=== PATIENT | male | born 1965 | race Caucasian/White ===

== ENCOUNTER 2017-10-06 07:55 | Emergency (ER) | payer MEDICARE, MEDICAID, SELFPAY ==
[2017-10-06 07:56] VITALS: BP 102/69; PULSE 75; RESP 18; TEMP 35.7; O2SAT 95; BMI 29.1
--- NOTE | 2017-10-06 08:12 | ED.DCSUM_ITS ---
- ER Visit Summary Date of Service: 10/06/17 Chief Complaint: Cough History of Present Illness: The patient is a 52 M brought in from residential with staff member. She states the patient has had a cough for the past 2 months and has been seeing primary care physician about recurrent bronchitis. This morning he seemed to have more labored breathing. Swelling was noted to all extremities over the past week or so. She does state that he tends to get more swollen in the summer, but has been admitted for pneumonia and was told that he had CHF as well. They have not noted a fever. Physical Examination: Patient is afebrile. Pulse ox is 95% on room air. Patient is lying in bed in no acute distress. He does have a moist sounding cough. Heart is regular rate and rhythm. Lung sounds are grossly clear but slightly diminished at the bases. No wheezes or rhonchi noted. Abdomen is soft and nontender. Lower external examination reveals 3+ edema symmetric. Test Results: Portable chest x-ray shows moderate cardiomegaly with prominence of the aortic knob. CT the chest is recommended. CBC was normal white count. Platelet count is 87,000 but this is consistent with his prior values. Chemistry studies reveal potassium of 5.7 with moderate hemolysis noted. BNP is normal at 42. Dilantin level is slightly low at 5.8. Depakote level is therapeutic at 65. EKG was obtained secondary to the elevated potassium rating. This is sinus rhythm at 70 bpm with no EKG evidence of hyperkalemia. He did have blood cultures drawn. He has been a difficult stick to get blood work on and with moderate hemolysis noted on the chemistry panel and no EKG changes I do not feel it is of great benefit to redraw his potassium level. Emergency Department Course and Treatment: Patient was observed here. Vital signs remained stable. He is resting comfortably. CT of the chest was obtained and reveals diffuse interstitial edema in both lung anaya with left lower lobe pneumonitis. There is no organized infiltrate. Test results were discussed with the patient's primary care physician, Dr. Zimmerman. Patient was placed on a Medrol Dosepak and will follow-up in the office. This is been discussed with his mother as well as residential staff members at bedside. Treatment Plan: [] Disposition: Discharge Impression: Pneumonitis This note was generated with [employer]ine[employer] software. It may contain incorrect words, spelling, and punctuation that were not noted in review of the chart prior to signing ED Disposition - Plan for ED Patient: Chief Complaint: Cough Referrals: Andrea Zimmerman Chi, MD [Primary Care Provider] -
[2017-10-06 08:39] VITALS: BP 111/67; PULSE 74; RESP 22; O2SAT 94
[2017-10-06 08:42] VITALS: O2SAT 95
[2017-10-06] MEDS: 0.9% Normal Saline 1,000 ML 15 ML IV (08:47)
[2017-10-06 08:52] LABS: Absolute Lymphocyte Count 1.37 X10^3/ul (0.83-4.51); Absolute Neutrophil Count 5.3 X10^3/uL (2.0-7.7); Eosinophil# 0.11 X10^3/uL; Eosinophils% 1.5 % (0-5); Hemoglobin 14.1 g/dl (13.0-16.5); Lymphocyte # 1.37 X10^3/ul (4.0); Lymphocyte % 19.1 % (19-41); Mean Corp Hgb Conc 34.4 g/gl (32-36); Mean Corpuscular Hgb 32.6 pg (27.0-32.0); Mean Corpuscular Volume 94.7 fL (80-94); Mean Platelet Vol. 11.2 fl (6.2-12.0); Monocyte# 0.43 X10^3/uL; Neutrophil # 5.25 X10^3/uL (2.7-7.7); Neutrophil % 73.3 % (47-70); Platelet Count 87 K/mm3 (150-450); RBC Distribution Width CV 16.3 % (11.6-14.6); RBC Distribution Width SD 54.5 fl (35.1-43.9); Red Blood Count 4.33 M/mm3 (4.6-6.2); White Blood Count 7.2 K/mm3 (4.4-11.0)
[2017-10-06 08:53] LABS: POSITIVE COUNT NO; POSITIVE DIFFERENTIAL NO; POSITIVE MORPHOLOGY NO
--- NOTE | 2017-10-06 08:55 | RAD_ITS ---
STUDY: X-RAY CHEST REASON FOR EXAM: Male, 52 years old. Cough and shortness of breath. TECHNIQUE: Single AP portable view of the chest. COMPARISON: Comparison is made with prior study dated April 15, 2017. FINDINGS: EKG liquids are seen. The lungs are clear and expanded. There is no demonstrated pleural abnormality. There is moderate cardiac enlargement. Normal mediastinum and zoila. Normal visualized pulmonary arteries. There is prominence of the aortic knob. This may represent either ectasia of the aortic knob versus superimposed infiltrate. Correlation with a CT scan is recommended. Normal visualized thoracic spine. Normal visualized ribs, clavicles, and shoulders. There is no demonstrated abnormality of the visualized soft tissue structures of the upper abdomen. RAD/Chest 1 View (Portable) IMPRESSION: Moderate cardiomegaly. Prominence of the aortic knob. Correlation with CT scan is recommended. Electronically Signed: Jesus Lobato MD at 9:19 EDT Tel [phone], Service support ,
[2017-10-06 09:21] LABS: BNP,B-Type NATRIURETIC PEPTIDE 42.7 pg/mL (0-100)
[2017-10-06 09:25] LABS: Anion Gap 8 (5-15); BUN 17 mg/dL (7-18); Calcium,Total 8.8 mg/dL (8.5-10.1); Chloride 107 mmol/L (98-107); Creatinine, Serum 0.77 mg/dL (0.70-1.30); EST Glomerular Filtration Rate 112 mL/min (>60); Est Glom Filt Rate - Afr Amer 136 mL/min (>60); Estimated Creatinine Clearance 104.92 ml/min; Glucose 75 mg/dL (74-106); Potassium 5.7 mmol/L (3.5-5.1); Sodium Level 141 mmol/L (136-145)
--- NOTE | 2017-10-06 09:26 | CT_ITS ---
STUDY: CT CHEST WITHOUT CONTRAST REASON FOR EXAM: Male, 52 years old. Chest pain and cough, shortness of breath history of melanoma and rectal cancer RADIATION DOSAGE (If Supplied By Facility): CTDIvol = ( 19.63 ) mGy, DLP = ( 627.79 ) mGycm TECHNIQUE: Transaxial imaging was performed without the administration of intravenous contrast material. Multiplanar coronal and sagittal images were reformatted. Individualized dose optimization techniques were used for this CT. COMPARISON: 03/18/2017 FINDINGS: Lung windows show the lungs to be normally expanded. Diffuse interstitial edema noted in both lung anaya with opacifications in the left lung base suggestive of pneumonitis. There is no organized infiltrate, or suspicious noncalcified mass or nodule. Soft tissue windows show a normal-appearing thyroid gland. There are scattered subcentimeter axillary and mediastinal lymph nodes. No pleural or pericardial effusions. Normal aorta arch and descending thoracic aorta. There are multi-level degenerative changes of the thoracic spine. Limited cuts through the upper abdomen show a small retrocardiac hiatal hernia and atrophic left kidney. CT/Chest without Contrast IMPRESSION: Diffuse interstitial edema in both lung anaya with left lower lobe pneumonitis. No organized infiltrate, or suspicious noncalcified mass or nodule. No pleural or pericardial effusions Scattered subcentimeter axillary and mediastinal lymphadenopathy. Degenerative bony changes Electronically Signed: Steven Hernandez MD at 10:28 EDT , Service support ,
[2017-10-06 09:28] LABS: Valproic Acid (Depakene) Level 65 ug/mL (50-100)
[2017-10-06 09:35] LABS: Phenytoin (Dilantin) Level 5.8 mL (10.0-20.0)
--- NOTE | 2017-10-06 09:39 | EKG12_ITS ---
Test Reason : COUGH Blood Pressure : / mmHG Vent. Rate : 070 BPM Atrial Rate : 070 BPM P-R Int : 154 ms QRS Dur : 076 ms QT Int : 338 ms P-R-T Axes : 025 010 032 degrees QTc Int : 365 ms Suspect unspecified pacemaker failure Normal sinus rhythm Normal ECG Confirmed by PATRICIA CHASE, NNAMDI ([id number]), order editor RENETTA BOOKER ([id number]) on 10/08/2017 9:08:59 AM Referred By: ALICE Confirmed By:NNAMDI GOMEZ MD
[2017-10-06 10:00] VITALS: BP 110/74
--- NOTE | 2017-10-06 10:47 | ED.DEP ---
ED Disposition - Plan for ED Patient: Disposition: Home or Assisted Living Chief Complaint: Cough Instructions: ED Cough Chronic Cause Unkn Prescriptions: MethylPREDNISolone DosePak [Medrol DosePak] 4 mg PO UD #1 box Referrals: Andrea Zimmerman Chi, MD [Primary Care Provider] - Additional Instructions: Your CT scan showed evidence of pneumonitis, or inflammation of the lung. There is no pneumonia. Steroids should help this. Follow-up with Dr Zimmerman. Return to the ED for any worsening symptoms or concerns.
[2017-10-06 11:09] VITALS: BP 90/75; PULSE 67; RESP 16; O2SAT 96
== END 2017-10-06 11:30 | disposition home or self-care (01) ==
PROVIDERS: Emergency Provider Emergency Medicine; Family Provider Family Medicine Geriatric Medicine; PCP Family Medicine Geriatric Medicine
DX: J18.9 Pneumonia, unspecified organism (principal); I50.9 Heart failure, unspecified; E66.9 Obesity, unspecified; Z68.29 Body mass index [BMI] 29.0-29.9, adult; G40.909 Epilepsy, unspecified, not intractable, without status epilepticus; F79 Unspecified intellectual disabilities; Z87.01 Personal history of pneumonia (recurrent); Z79.899 Other long term (current) drug therapy
CPT/HCPCS: 71045; 71250; 80048; 80164; 80185; 83880; 85025; 87040; 93005; 96360; 96361; 99284; J7030; A4216

== ENCOUNTER → 2017-12-20 16:24 | Outpatient (CLI) | payer MEDICARE, MEDICAID, SELFPAY ==
--- NOTE | 2017-12-20 16:35 | RAD_ITS ---
STUDY: X-RAY CHEST REASON FOR EXAM: Male, 52 years old. Cough, chills, no fever. TECHNIQUE: AP upright chest COMPARISON: 10/06/2017 chest x-ray. CT chest 10/06/2017. FINDINGS: Right lung clear. Mild left perihilar/infrahilar lower lobe interstitial prominence, retrocardiac, without dense focal infiltrate. No pneumothorax. Mild cardiomegaly. Mildly ectatic aorta. RAD/Chest PA and Lateral IMPRESSION: Left lower lung retrocardiac interstitial prominence is probably a representation of interstitial changes seen on the CT scan of 10/06/2017. No other new infiltrate is evident. On that CT scan, there was bronchial wall thickening in the lower lobe, peribronchial soft tissue thickening, mild groundglass and tree-in-bud nodular opacities suggesting pneumonia possibly with atypical organisms. The patient may have persistence of this process which would be best characterized by CT scan. Electronically Signed: Salvador Alvarez, at 17:03 EDT Tel , Service support ,
== END ==
PROVIDERS: Family Provider Family Medicine Geriatric Medicine; PCP Family Medicine Geriatric Medicine; Visit Provider Family Medicine Geriatric Medicine
DX: R05 Cough (principal); R68.83 Chills (without fever)
CPT/HCPCS: 71046; 87633

== ENCOUNTER → 2018-01-06 11:35 | Outpatient (CLI) | payer MEDICARE, MEDICAID, SELFPAY ==
[2018-01-06 13:21] LABS: ALB/GLOB Ratio 0.8 RATIO (0.9-2.4); AST(SGOT) 45 U/L (15-37); Alanine Aminotransfer ALT/SGPT 47 U/L (16-61); Albumin, Serum 2.9 g/dL (3.2-5.0); Alkaline Phosphatase 90 U/L (45-117); Anion Gap 9 (5-15); BUN 12 mg/dL (7-18); BUN/Creat Ratio 16.8 RATIO (10-20); Calcium,Total 8.9 mg/dL (8.5-10.1); Chloride 110 mmol/L (98-107); Creatinine, Serum 0.71 mg/dL (0.70-1.30); EST Glomerular Filtration Rate 123 mL/min (>60); Est Glom Filt Rate - Afr Amer 148 mL/min (>60); Globulin 3.7 g/dL (2.2-4.2); Glucose 80 mg/dL (74-106); Potassium 5.7 mmol/L (3.5-5.1); Protein, Total 6.6 g/dL (6.4-8.2); Sodium Level 140 mmol/L (136-145)
[2018-01-06 13:23] LABS: BNP,B-Type NATRIURETIC PEPTIDE 65.8 pg/mL (0-100)
== END ==
PROVIDERS: Family Provider Family Medicine Geriatric Medicine; PCP Family Medicine Geriatric Medicine; Visit Provider Family Medicine Geriatric Medicine
DX: Z13.89 Encounter for screening for other disorder (principal); E55.9 Vitamin D deficiency, unspecified; R53.83 Other fatigue; R06.02 Shortness of breath; R60.9 Edema, unspecified
CPT/HCPCS: 36415; 80053; 83880; 84443; 85379

== ENCOUNTER → 2018-01-08 11:09 | Outpatient (CLI) | payer MEDICARE, MEDICAID, SELFPAY ==
[2018-01-08 11:52] LABS: Anion Gap 7 (5-15); BUN 10 mg/dL (7-18); Calcium,Total 8.6 mg/dL (8.5-10.1); Chloride 108 mmol/L (98-107); Creatinine, Serum 0.77 mg/dL (0.70-1.30); EST Glomerular Filtration Rate 113 mL/min (>60); Est Glom Filt Rate - Afr Amer 136 mL/min (>60); Glucose 77 mg/dL (74-106); Potassium 4.1 mmol/L (3.5-5.1); Sodium Level 143 mmol/L (136-145)
== END ==
PROVIDERS: Family Provider Family Medicine Geriatric Medicine; PCP Family Medicine Geriatric Medicine; Referring Provider Family Medicine Geriatric Medicine; Visit Provider Family Medicine Geriatric Medicine
DX: E87.6 Hypokalemia (principal)
CPT/HCPCS: 36415; 80048

== ENCOUNTER → 2018-01-14 08:54 | Outpatient (CLI) | payer MEDICARE, MEDICAID, SELFPAY ==
[2018-01-14 12:43] LABS: Anion Gap 6 (5-15); BUN 19 mg/dL (7-18); BUN/Creat Ratio 24.4 RATIO (10-20); Calcium,Total 8.8 mg/dL (8.5-10.1); Chloride 104 mmol/L (98-107); Creatinine, Serum 0.78 mg/dL (0.70-1.30); EST Glomerular Filtration Rate 111 mL/min (>60); Est Glom Filt Rate - Afr Amer 134 mL/min (>60); Glucose 88 mg/dL (74-106); Potassium 4.7 mmol/L (3.5-5.1); Sodium Level 136 mmol/L (136-145)
== END ==
PROVIDERS: Family Provider Family Medicine Geriatric Medicine; PCP Family Medicine Geriatric Medicine; Visit Provider Family Medicine Geriatric Medicine
DX: R60.9 Edema, unspecified (principal)
CPT/HCPCS: 36415; 80048

== ENCOUNTER → 2018-01-24 15:03 | Outpatient (CLI) | payer MEDICARE, MEDICAID, SELFPAY ==
[2018-01-24 16:33] LABS: Anion Gap 10 (5-15); BUN 22 mg/dL (7-18); Chloride 104 mmol/L (98-107); Creatinine, Serum 0.96 mg/dL (0.70-1.30); EST Glomerular Filtration Rate 87 mL/min (>60); Est Glom Filt Rate - Afr Amer 106 mL/min (>60); Glucose 53 mg/dL (74-106); Potassium 4.8 mmol/L (3.5-5.1); Sodium Level 140 mmol/L (136-145)
== END ==
PROVIDERS: Family Provider Family Medicine Geriatric Medicine; PCP Family Medicine Geriatric Medicine; Visit Provider Family Medicine Geriatric Medicine
DX: R60.9 Edema, unspecified (principal)
CPT/HCPCS: 36415; 80048

== ENCOUNTER → 2018-04-22 11:05 | Outpatient (CLI) | payer MEDICARE, MEDICAID, SELFPAY | PROVIDERS: Family Provider Family Medicine Geriatric Medicine; PCP Family Medicine Geriatric Medicine; Referring Provider Family Medicine Geriatric Medicine; Visit Provider Family Medicine Geriatric Medicine | DX: R68.83 Chills (without fever) (principal) | CPT/HCPCS: 87633 ==

== ENCOUNTER → 2018-05-16 10:47 | Outpatient (CLI) | payer MEDICARE, MEDICAID, SELFPAY ==
--- NOTE | 2018-05-16 10:53 | VDUE_ITS ---
Reason For Study: RUE swelling Right Proximal Left Proximal Right jugular vein is spontaneous, widely Left jugular vein is spontaneous, widely patent, phasic, with no intraluminal patent, phasic, with no intraluminal echogenicity noted. echogenicity noted. Right subclavian vein is spontaneous, widely Left subclavian vein is spontaneous, widely patent, phasic, with no intraluminal patent, phasic, with no intraluminal echogenicity noted. echogenicity noted. Right Lower Arm Left Arm Right radial vein is compressible. Left axillary vein is spontaneous, patent, Right ulnar vein is compressible. phasic, competent, compressible and Right Arm demonstrates augmentation. Right axillary vein is spontaneous, patent, Left brachial vein is compressible. phasic, competent, compressible and Left cephalic vein is compressible. demonstrates augmentation. Left basilic vein is compressible. Right brachial vein is compressible. Left Lower Arm Right cephalic vein is compressible. Left radial vein is compressible. Right basilic vein is compressible. Left ulnar vein is compressible. Interpretation Summary Deep veins of the upper extremities are bilaterally patent and compressible segmentally. There is no evidence of deep vein thrombosis on either side. The superficial veins of the upper extremities, the basilic and cephalic veins, are patent and compressible bilaterally. There is no evidence of upper extremity superficial thrombophlebitis on either side involving the veins imaged. Ordering Physician: Andrea Zimmerman Referring Physician: Andrea Zimmerman Chi Performed By: Louann Powers RVT ?
== END ==
PROVIDERS: Family Provider Family Medicine Geriatric Medicine; PCP Family Medicine Geriatric Medicine; Referring Provider Family Medicine Geriatric Medicine; Visit Provider Family Medicine Geriatric Medicine
DX: R60.0 Localized edema (principal)
CPT/HCPCS: 93970

== ENCOUNTER 2018-05-25 08:20 | Outpatient (RCR) | payer SELFPAY ==
[2018-05-25 09:17] VITALS: BP 120/92; PULSE 92; RESP 18; TEMP 37.1
== END 2018-06-09 23:59 ==
LOC: WC 08:20
PROVIDERS: Family Provider Family Medicine Geriatric Medicine; PCP Family Medicine Geriatric Medicine; Visit Provider Internal Medicine
DX: Z09 Encounter for follow-up examination after completed treatment for conditions other than malignant neoplasm (principal)

== ENCOUNTER → 2018-08-17 10:56 | Outpatient (CLI) | payer MEDICARE, MEDICAID, SELFPAY ==
[2018-08-17 12:22] LABS: Absolute Lymphocyte Count 1.94 X10^3/ul (0.83-4.51); Absolute Neutrophil Count 1.5 X10^3/uL (2.0-7.7); Basophil# 0.01 X10^3/uL; Basophil% 0.3 % (0-1); Eosinophil# 0.06 X10^3/uL; Eosinophils% 1.5 % (0-5); Hematocrit 44.5 % (40-54); Hemoglobin 14.9 g/dl (13.0-16.5); Lymphocyte # 1.94 X10^3/ul (4.0); Mean Corp Hgb Conc 33.5 g/gl (32-36); Mean Corpuscular Volume 98.7 fL (80-94); Mean Platelet Vol. 10.9 fl (6.2-12.0); Monocyte# 0.34 X10^3/uL; Monocyte% 8.8 % (0-10); Neutrophil # 1.51 X10^3/uL (2.7-7.7); Neutrophil % 38.9 % (47-70); Platelet Count 79 K/mm3 (150-450); RBC Distribution Width CV 16.6 % (11.6-14.6); RBC Distribution Width SD 59.7 fl (35.1-43.9); Red Blood Count 4.51 M/mm3 (4.6-6.2); White Blood Count 3.9 K/mm3 (4.4-11.0)
[2018-08-17 12:28] LABS: POSITIVE COUNT NO; POSITIVE DIFFERENTIAL NO; POSITIVE MORPHOLOGY NO
== END ==
PROVIDERS: Family Provider Family Medicine Geriatric Medicine; PCP Family Medicine Geriatric Medicine; Visit Provider Family Medicine Geriatric Medicine
DX: R60.9 Edema, unspecified (principal)
CPT/HCPCS: 36415; 80053; 84443; 85025

== ENCOUNTER 2018-09-06 11:33 | Inpatient (IN) | payer MEDICARE, MEDICAID, SELFPAY ==
[2018-09-06] VITALS (14 sets, daily range): BP systolic 95–135; BP diastolic 50–111; PULSE 56–100; RESP 16–20; TEMP 35.2–36.5; O2SAT 96–98; BMI 30.9; BMI 31.1
--- NOTE | 2018-09-06 12:32 | RAD_ITS ---
STUDY: X-RAY CHEST REASON FOR EXAM: Male, 53 years old. Left-sided chest pain. TECHNIQUE: Single AP portable view of the chest. COMPARISON: Comparison is made with prior study dated December 20, 2017. FINDINGS: EKG electrodes are seen. The lungs are clear and expanded. There is no demonstrated pleural abnormality. There is mild cardiac enlargement. Normal mediastinum and zoila. Normal visualized pulmonary arteries. There is atherosclerotic tortuosity of the aortic arch and descending thoracic aorta. Normal visualized thoracic spine. Normal visualized ribs, clavicles, and shoulders. There is no demonstrated abnormality of the visualized soft tissue structures of the upper abdomen. RAD/Chest 1 View (Portable) IMPRESSION: No acute abnormality is seen. Electronically Signed: Jesus Lobato, at 14:54 EDT , Service support ,
--- NOTE | 2018-09-06 12:32 | EKG12_ITS ---
Test Reason : SOB Blood Pressure : / mmHG Vent. Rate : 059 BPM Atrial Rate : 059 BPM P-R Int : 182 ms QRS Dur : 088 ms QT Int : 386 ms P-R-T Axes : 033 041 088 degrees QTc Int : 382 ms Sinus bradycardia Otherwise normal ECG Confirmed by MARIPOSA HAMPTON ([id number]), scientific publications editor RUSLAN ARMENTA ([id number]) on 09/08/2018 8:36:41 AM Referred By: Diane Porras Confirmed By:MARIPOSA HAMPTON
[2018-09-06] MEDS: Ipratropium/Albuterol Sulfate 3 ML AMPUL.NEB INHALATION ×3 (12:44→22:22)
[2018-09-06 14:22] LABS: BUN 17 mg/dL (7-18); Creatinine, Serum 1.16 mg/dL (0.70-1.30); Glucose 101 mg/dL (74-106)
[2018-09-06 14:23] LABS: Anion Gap 8 (5-15); BUN/Creat Ratio 14.7 RATIO (10-20); Calcium,Total 8.6 mg/dL (8.5-10.1); Chloride 102 mmol/L (98-107); EST Glomerular Filtration Rate 70 mL/min (>60); Est Glom Filt Rate - Afr Amer 85 mL/min (>60); Estimated Creatinine Clearance 68.85 ml/min; Potassium 4.9 mmol/L (3.5-5.1); Sodium Level 139 mmol/L (136-145)
[2018-09-06 14:26] LABS: Absolute Lymphocyte Count 1.39 X10^3/ul (0.83-4.51); Absolute Neutrophil Count 12.2 X10^3/uL (2.0-7.7); Basophil# 0.01 X10^3/uL; Basophil% 0.1 % (0-1); Eosinophil# 0.05 X10^3/uL; Eosinophils% 0.3 % (0-5); Hematocrit 39.9 % (40-54); Hemoglobin 13.3 g/dl (13.0-16.5); Lymphocyte # 1.39 X10^3/ul (4.0); Lymphocyte % 8.7 % (19-41); Mean Corp Hgb Conc 33.3 g/gl (32-36); Mean Corpuscular Hgb 32.7 pg (27.0-32.0); Mean Platelet Vol. 9.6 fl (6.2-12.0); Monocyte# 2.35 X10^3/uL; Monocyte% 14.7 % (0-10); Neutrophil # 12.19 X10^3/uL (2.7-7.7); RBC Distribution Width CV 17.6 % (11.6-14.6); RBC Distribution Width SD 63.1 fl (35.1-43.9); Red Blood Count 4.07 M/mm3 (4.6-6.2)
--- NOTE | 2018-09-06 14:28 | ED.RN ---
plt [address] called from the lab. dr lock aware
[2018-09-06 14:29] LABS: POSITIVE COUNT YES; POSITIVE DIFFERENTIAL YES; POSITIVE MORPHOLOGY NO; Platelet Count 41 K/mm3 (150-450)
[2018-09-06 14:32] LABS: BNP,B-Type NATRIURETIC PEPTIDE 62.7 pg/mL (0-100)
[2018-09-06 14:49] LABS: Differential Indicated SCAN CRITERIA MET
--- NOTE | 2018-09-06 15:27 | ED.VISSUMM ---
- ER Visit Summary Date of Service: 09/06/18 Chief Complaint: [Shortness of breath] History of Present Illness: The patient is a 53 M [presents the emergency department with shortness of breath since yesterday. She is had increased cough. Patient turns red and has a hard time catching his breath. Patient has also been retaining fluid per mother has been an ongoing issue for the last year. Patient is nonverbal and has a history of MRDD. Patient is not ambulatory. On EMS arrival this morning patient was noted to be 80% on room air. Patient does have history of CHF. Patient with history of aspiration pneumonia and hypothyroidism. No fevers been noted.] Physical Examination: [HEENT-PERRLA, EOMI. Cranial nerves II through XII grossly intact. TMs clear. Mucous membranes moist. No adenopathy. Cardiovascular-regular rate and rhythm without murmur or ectopy Lungs-coarse breath sounds bilaterally with rhonchi and some faint expiratory wheezes. No significant tachypnea or accessory muscle use. Abdomen-normoactive bowel sounds, soft, nontender, no rebound or rigidity, no peritoneal signs. Extremities-intact ?4, normal range of motion, normal pulses, atraumatic. Patient has +3 edema in the upper and lower extremities.] Test Results: [EKG obtained showed a sinus rhythm with a ventricular rate of 59 bpm with no acute I segment changes. CBC with differential obtained showed a white count of 16,000, hemoglobin 13, hematocrit 39, polys 41. Chemistries unremarkable. Troponin is less than 0.015. BNP was 63. Chest x-ray showed nothing acute.] Emergency Department Course and Treatment: [Patient was given a DuoNeb aerosol. Patient was started on Zosyn 4.5 g IV.] Treatment Plan: [Admit] Disposition: [Admit] Impression: [Clinical pneumonia Hypoxemia Anasarca] This note was generated with Peak dictation software. It may contain incorrect words, spelling, and punctuation that were not noted in review of the chart prior to signing ED Disposition - Plan for ED Patient: Referrals: Andrea Zimmerman Chi, MD [Primary Care Provider] -
--- NOTE | 2018-09-06 15:30 | ED.DCSUM_ITS ---
- ER Visit Summary Date of Service: 09/06/18 Chief Complaint: [Shortness of breath] History of Present Illness: The patient is a 53 M [presents the emergency department with shortness of breath since yesterday. She is had increased cough. Patient turns red and has a hard time catching his breath. Patient has also been retaining fluid per mother has been an ongoing issue for the last year. Patient is nonverbal and has a history of MRDD. Patient is not ambulatory. On EMS arrival this morning patient was noted to be 80% on room air. Patient does have history of CHF. Patient with history of aspiration pneumonia and hypothyroidism. No fevers been noted.] Physical Examination: [HEENT-PERRLA, EOMI. Cranial nerves II through XII grossly intact. TMs clear. Mucous membranes moist. No adenopathy. Cardiovascular-regular rate and rhythm without murmur or ectopy Lungs-coarse breath sounds bilaterally with rhonchi and some faint expiratory wheezes. No significant tachypnea or accessory muscle use. Abdomen-normoactive bowel sounds, soft, nontender, no rebound or rigidity, no peritoneal signs. Extremities-intact ?4, normal range of motion, normal pulses, atraumatic. Patient has +3 edema in the upper and lower extremities.] Test Results: [EKG obtained showed a sinus rhythm with a ventricular rate of 59 bpm with no acute I segment changes. CBC with differential obtained showed a white count of 16,000, hemoglobin 13, hematocrit 39, polys 41. Chemistries unremarkable. Troponin is less than 0.015. BNP was 63. Chest x-ray showed nothing acute.] Emergency Department Course and Treatment: [Patient was given a DuoNeb aerosol. Patient was started on Zosyn 4.5 g IV.] Treatment Plan: [Admit] Disposition: [Admit] Impression: [Clinical pneumonia Hypoxemia Anasarca] This note was generated with [place] dictation software. It may contain incorrect words, spelling, and punctuation that were not noted in review of the chart james or to signing ED Disposition - Plan for ED Patient: Referrals: Andrea Zimmerman Chi, MD [Primary Care Provider] -
--- NOTE | 2018-09-06 15:31 | HP.PCM_ITS ---
Problem List (1) Seizure disorder Status: Chronic (2) Mental retardation Status: Chronic (3) Aspiration pneumonitis Status: Acute History of Present Illness Date of Admission: 09/06/18 Chief Complaint: Shortness of breath - 1 day The patient is a 53 year old M past medical history of MRDD, resident in a skilled nursing, who was brought in with complaints of hypoxia. Patient was found to be saturating 80% on room air when the EMS got there. This was reportedly improved with oxygen via nonrebreather . I am unable to get any history from him as he is nonverbal. History of CHF, on Lasix Vitals in the ED showed pressure of 90 5.3F, heart rate 61, blood pressure 135/1 4 1, respiratory rate was 20, SPO2 was 98% on room air. Admitting blood work showed WBC count of 16.0, hemoglobin 13.3, platelet count is 41. BMP is unremarkable, troponins are negative, BN pep is 62.7, checks x-ray shows no acute abnormalities Past Medical History Past Medical History (Chronic Problems): Chronic Problems Seizure disorder (Chronic) Mental retardation (Chronic) Allergies formaldehyde Allergy (Verified 09/06/18 11:39) Unknown Iodinated Contrast- Oral and IV Dye Allergy (Verified 09/06/18 11:39) Unknown iodine Allergy (Verified 09/06/18 11:39) Unknown Home Medications: Ambulatory Orders Medication Instructions Recorded Calcium Carbonate/Vitamin D3 1 each PO DAILY 10/06/17 [Oyster Shell Calcium-Vit D Tab] Divalproex Sodium [Depakote] 1,000 mg PO QHS 10/06/17 Divalproex Sodium [Depakote] 500 mg PO BID 10/06/17 Levetiracetam [Keppra] 1,000 mg PO BID 10/06/17 Minocycline HCl [Minocin] 50 mg PO QHS 10/06/17 Phenytoin Sodium Extended 100 mg PO QODAY 10/06/17 [Dilantin] Polyethylene Glycol 3350 [Miralax] 17 gm PO DAILY 10/06/17 Sennosides [Senna Lax] 8.6 mg PO DAILY 10/06/17 Cetirizine HCl 10 mg PO DAILY 09/06/18 Divalproex Sodium [Depakote] 250 mg PO TID 09/06/18 Famotidine 20 mg PO BID 09/06/18 Furosemide 40 mg PO DAILY 09/06/18 Guaifenesin [Mucinex] 600 mg PO BID 09/06/18 Ketoconazole 1 applic TP BID 09/06/18 Levothyroxine [Synthroid] 112 mcg PO DAILY 09/06/18 Meloxicam 7.5 mg PO DAILY 09/06/18 Nystatin 1 applic TP BID 09/06/18 Phenytoin [Dilantin] 50 mg PO QODAY 09/06/18 Potassium Chloride 20 meq PO DAILY 09/06/18 Triamcinolone 0.1% Ointment 1 applic TP BID 09/06/18 [Kenalog] Zinc Oxide [Desitin] 113 gm TP BID 09/06/18 Surgical History: no surgical history Psychiatric History: No pertinent psych hx, - - MRDD Lives: - - Lives in a skilled nursing Smoking Status: Never smoker Tobacco Use: Non-smoker Alcohol: None Drugs: None - *Family History Maternal History Items: Unknown Review of Systems Eyes: Reports: Vision Change Unable to obtain accurate/complete ROS d/t: Unable to see as patient is nonverbal VTE Information - Inpt Only VTE Present on Admission: No VTE Pharm Prophylaxis ordered?: Yes Patient Problems: Active and Suspected Problems Aspiration pneumonitis (Acute) - Physical Exam General: Alert, Oriented x3, Cooperative, No apparent distress, - - Not on oxygen HEENT: Atraumatic, PERRLA, EOMI, Normocephalic Oral: Moist Mucosa Neck: Supple, No JVD, Negative Carotid Bruits Lungs: Clear to auscultation, Normal air movement Cardiovascular: Regular rate, Regular Rhythm, Normal S1, Normal S2, No murmurs Abdomen: Bowel Sounds Present, Soft, Non Tender, Non-Distended, No Hepato- splenomegaly Extremities: Edema - of bilateral lower extremities Skin: No rashes, No breakdown Musculoskeletal: No Tenderness to Palpation of Joints or Extremities Lymphatic: No Cervical, Supraclavicular, or Inguinal Adenopathy Neurological: Cranial nerves II-XII grossly intact, Neuro grossly intact Psych/Mental Status: Normal Affect, Appropriate Vital Signs Temp Pulse Resp BP Pulse Ox 95.3 F L 56 L 16 108/50 L 96 09/06/18 11:34 09/06/18 15:00 09/06/18 15:00 09/06/18 15:00 09/06/18 15:00 Oxygen Delivery Method Room Air Weight: 89.5 kg Body Mass Index (BMI) 30.9 Laboratory Tests Past 24 Hrs 09/06/18 09/06/18 09/06/18 13:50 13:50 13:50 WBC 16.0 H RBC 4.07 L Hgb 13.3 Hct 39.9 L MCV 98.0 H MCH 32.7 H MCHC 33.3 RDW 17.6 H RDW Differential 63.1 H Plt Count 41 L* MPV 9.6 Immature Gran % (Auto) 0.200 Neut % (Auto) 76.0 H Lymph % (Auto) 8.7 L [place] % (Auto) 14.7 H Eos % (Auto) 0.3 Baso % (Auto) 0.1 Absolute Neuts (auto) 12.2 H Absolute Lymphs (auto) 1.39 Total Counted Not Reportable Differential Comment COMMENT Diff Path Review August foll Sodium 139 Potassium 4.9 Chloride 102 Carbon Dioxide 29.0 Anion Gap 8 BUN 17 Creatinine 1.16 Estim Creat Clear Calc 68.85 Est GFR (MDRD) Af Amer 85 Est GFR (MDRD) Non-Af 70 BUN/Creatinine Ratio 14.7 Glucose 101 Calcium 8.6 Troponin I < 0.015 B-Natriuretic Peptide 62.7 Assessment/Plan All Active Problems Aspiration pneumonitis (Acute) Aspiration pneumonia (Acute) Septic shock (Acute) Skin tear (Resolved) 53 year old M past medical history of MRDD, resident in a skilled nursing, who was brought in with complaints of hypoxia. 1. Acute hypoxic respiratory failure, SPO2 by EMS was 80%, improved with nonrebreather, patient was saturating well at the time of admission to the ED No infiltrates seen on chest x-ray, secondary to atelectasis versus mucous plug versus aspiration pneumonitis Plan: Admit to PCU, monitor on telemetry, breathing treatments as needed, bedside swallow eval, speech therapy to evaluate and treat 2. Chronic CHF, not in acute exacerbation, on chronic p.o. Lasix, continue same 3. Echo cytosis, likely reactive, no signs of sepsis, trend in a.m. 4. Chronic thrombocytopenia, unclear etiology, continue to follow 5. MRDD, resident in a skilled nursing 6. Seizure disorder, on seizure meds, will check Dilantin, valproic acid levels 7. DVT PPx - SCDs on account of severe thrombocytopenia Code Visit Inpatient E&M: 49321 Init Hosp L3
[2018-09-06] MEDS: Dextrose 5%/0.9% NaCl 1,000 ML 75 ML IV (18:40)
[2018-09-06 19:11] LABS: Bedside Glucose 122 mg/dL (70-110)
[2018-09-06 20:36] LABS: Phenytoin (Dilantin) Level 5.3 mL (10.0-20.0); Valproic Acid (Depakene) Level 99 ug/mL (50-100)
[2018-09-06] MEDS: levETIRAcetam IV 100 ML 400 MG IV (22:50)
[2018-09-06 23:16] LABS: Bedside Glucose 147 mg/dL (70-110)
[2018-09-07] VITALS (19 sets, daily range): BP systolic 101–124; BP diastolic 53–85; PULSE 56–129; RESP 16–20; TEMP 35.1–35.5; O2SAT 93–98
[2018-09-07] MEDS: Ipratropium/Albuterol Sulfate 3 ML AMPUL.NEB INHALATION ×6 (02:41→23:00)
[2018-09-07 06:16] LABS: Bedside Glucose 121 mg/dL (70-110)
[2018-09-07 06:22] LABS: Absolute Lymphocyte Count 1.03 X10^3/ul (0.83-4.51); Absolute Neutrophil Count 4.2 X10^3/uL (2.0-7.7); Basophil# 0.01 X10^3/uL; Basophil% 0.2 % (0-1); Eosinophil# 0.14 X10^3/uL; Eosinophils% 2.2 % (0-5); Hematocrit 35.7 % (40-54); Hemoglobin 12.2 g/dl (13.0-16.5); Lymphocyte # 1.03 X10^3/ul (4.0); Lymphocyte % 16.2 % (19-41); Mean Corp Hgb Conc 34.2 g/gl (32-36); Mean Corpuscular Hgb 32.6 pg (27.0-32.0); Mean Corpuscular Volume 95.5 fL (80-94); Mean Platelet Vol. 10.2 fl (6.2-12.0); Monocyte# 0.94 X10^3/uL; Monocyte% 14.8 % (0-10); Neutrophil # 4.22 X10^3/uL (2.7-7.7); Neutrophil % 66.1 % (47-70); RBC Distribution Width CV 17.2 % (11.6-14.6); RBC Distribution Width SD 57.9 fl (35.1-43.9); Red Blood Count 3.74 M/mm3 (4.6-6.2); White Blood Count 6.4 K/mm3 (4.4-11.0)
[2018-09-07 06:46] LABS: ALB/GLOB Ratio 0.6 RATIO (0.9-2.4); AST(SGOT) 31 U/L (15-37); Alanine Aminotransfer ALT/SGPT 31 U/L (16-61); Albumin, Serum 2.1 g/dL (3.2-5.0); Alkaline Phosphatase 98 U/L (45-117); Anion Gap 8 (5-15); BUN 14 mg/dL (7-18); BUN/Creat Ratio 15.9 RATIO (10-20); Calcium,Total 7.4 mg/dL (8.5-10.1); Chloride 107 mmol/L (98-107); Creatinine, Serum 0.88 mg/dL (0.70-1.30); EST Glomerular Filtration Rate 96 mL/min (>60); Est Glom Filt Rate - Afr Amer 117 mL/min (>60); Globulin 3.7 g/dL (2.2-4.2); Glucose 104 mg/dL (74-106); Phosphorus 3.4 mg/dL (2.5-4.9); Potassium 4.3 mmol/L (3.5-5.1); Protein, Total 5.8 g/dL (6.4-8.2); Sodium Level 142 mmol/L (136-145)
[2018-09-07 06:50] LABS: Differential Indicated SCAN CRITERIA MET; POSITIVE COUNT YES; POSITIVE DIFFERENTIAL NO; POSITIVE MORPHOLOGY YES; Platelet Count 30 K/mm3 (150-450)
[2018-09-07 06:57] LABS: Differential Comment SCANNED; Platelet Estimate MKD DEC (ADEQ)
[2018-09-07] MEDS: Dextrose 5%/0.9% NaCl 1,000 ML 75 ML IV (07:46)
[2018-09-07] MEDS: levETIRAcetam IV 100 ML 400 MG IV ×2 (09:13→20:53)
[2018-09-07 10:36] LABS: Bedside Glucose 120 mg/dL (70-110)
[2018-09-07] MEDS: Furosemide 40 MG/4 ML Vial IV (11:02)
[2018-09-07 12:07] LABS: Pathologist Review Reviewed
[2018-09-07 12:16] LABS: Pathologist Review Reviewed
[2018-09-07] MEDS: Phenytoin Na 100 MG Capsule PO (12:16)
--- NOTE | 2018-09-07 12:19 | NURSING ---
ST HERE TO DO SWALLOW EVALUATION. PT WILL TAKE FOOD FROM [facility]. TAKING PO WITHOUT DIFFICULTY.
--- NOTE | 2018-09-07 12:30 | NURSING ---
Pt put on regular diet per Adam CACERES.
--- NOTE | 2018-09-07 12:39 | PCM.PN.HOSP ---
Patient Problems: Active and Suspected Problems Aspiration pneumonitis (Acute) Subjective: She is to be doing okay however given his MRDD difficult to converse with. Vitals/I&O's: Vital Signs Temp Pulse Resp BP Pulse Ox 95.6 F L 56 L 16 107/60 94 09/07/18 10:21 09/07/18 11:29 09/07/18 12:30 09/07/18 10:21 09/07/18 12:30 Oxygen Delivery Method Room Air Weight: 197 lb 15.99 oz Body Mass Index (BMI) 31.1 Intake and Output for Last 24 Hours 09/05/18 09/06/18 09/07/18 23:59 23:59 23:59 Intake Total 663 / 663 1129.2 / 1129.2 Balance 663 / 663 1129.2 / 1129.2 General: Alert, Cooperative HEENT: Atraumatic, PERRLA, Normocephalic Oral: Moist Mucosa Neck: Supple, No JVD Lungs: Normal air movement, Diminished, Rales Cardiovascular: Regular rate, Regular Rhythm, Normal S1, Normal S2, No murmurs Abdomen: Soft, Non Tender, Non-Distended, No Hepato-splenomegaly Extremities: No edema, Capillary Refill Less than 3 Seconds Skin: No rashes, No breakdown Neurological: Neuro grossly intact, Sensory exam intact to light touch and pain Psych/Mental Status: Flat Affect Microbiology Past 72 Hours 09/07/18 02:30 Urine Catheter - Catheter Streptococcus pneumoniae Antigen (M - Final 09/07/18 02:30 Urine Catheter - Catheter Legionella Antigen - Final Laboratory Results 09/06/18 13:50: WBC 16.0 H, RBC 4.07 L, Hgb 13.3, Hct 39.9 L, MCV 98.0 H, MCH 32.7 H, MCHC 33.3, RDW 17.6 H, RDW Differential 63.1 H, Plt Count 41 L*, MPV 9.6, Immature Gran % (Auto) 0.200, Neut % (Auto) 76.0 H, Lymph % (Auto) 8.7 L, [place] % (Auto) 14.7 H, Eos % (Auto) 0.3, Baso % (Auto) 0.1, Absolute Neuts (auto) 12.2 H, Absolute Lymphs (auto) 1.39, Total Counted Not Reportable, Differential Comment COMMENT, Diff Path Review Reviewed 09/06/18 13:50: Sodium 139, Potassium 4.9, Chloride 102, Carbon Dioxide 29.0, Anion Gap 8, BUN 17, Creatinine 1.16, Estim Creat Clear Calc 68.85, Est GFR (MDRD) Af Amer 85, Est GFR (MDRD) Non-Af 70, BUN/Creatinine Ratio 14.7, Glucose 101, Calcium 8.6, Troponin I < 0.015 09/06/18 13:50: B-Natriuretic Peptide 62.7 09/06/18 13:50: Phenytoin 5.3 L, Valproic Acid 99 09/06/18 18:58: POC Glucose 122 H 09/06/18 22:58: POC Glucose 147 H 09/07/18 05:49: POC Glucose 121 H 09/07/18 05:55: WBC 6.4, RBC 3.74 L, Hgb 12.2 L, Hct 35.7 L, MCV 95.5 H, MCH 32.6 H, MCHC 34.2, RDW 17.2 H, RDW Differential 57.9 H, Plt Count 30 L*, MPV 10.2, Immature Gran % (Auto) 0.500, Neut % (Auto) 66.1, Lymph % (Auto) 16.2 L, [place] % (Auto) 14.8 H, Eos % (Auto) 2.2, Baso % (Auto) 0.2, Absolute Neuts (auto) 4.2, Absolute Lymphs (auto) 1.03, Total Counted Not Reportable, Differential Comment SCANNED, Diff Path Review Reviewed, Platelet Estimate MKD 09/07/18 05:55: Sodium 142, Potassium 4.3, Chloride 107, Carbon Dioxide 27.0, Anion Gap 8, BUN 14, Creatinine 0.88, Estim Creat Clear Calc 87.60, Est GFR (MDRD) Af Amer 117, Est GFR (MDRD) Non-Af 96, BUN/Creatinine Ratio 15.9, Glucose 104, Calcium 7.4 L, Phosphorus 3.4, Total Bilirubin 0.20, AST 31, ALT 31, Alkaline Phosphatase 98, Total Protein 5.8 L, Albumin 2.1 L, Globulin 3.7, Albumin/Globulin Ratio 0.6 L 09/07/18 10:28: POC Glucose 120 H Current Medications Acetaminophen (Tylenol) 650 mg PO Q6H PRN PRN PRN Reason: Mild Pain (1-3)/Temp > 100.7 F Albuterol Sulfate (Ventolin Aerosols) 2.5 mg INHALATION Q2H PRN PRN PRN Reason: Shortness of Breath/Wheezing Albuterol/Ipratropium (Duoneb) 3 ml INHALATION Q4H.RT [facility] Last Admin: 09/07/18 10:09 Dose: 3 ml Dextrose (D50w Syringe) 0 gm IV X1 PRN; Protocol PRN Reason: Hypoglycemia Furosemide (Lasix) 40 mg PO DAILY [facility] Last Admin: 09/07/18 11:09 Dose: Not Given Glucagon () 1 mg IM .X1 PRN PRN Reason: Hypoglycemia Guaifenesin (Robitussin) 20 ml PO Q4H PRN PRN PRN Reason: COUGH Dextrose/Sodium Chloride (Dextrose 5%/0.9% Nacl) 1,000 mls @ 75 mls/hr IV .[id number] [facility] Last Admin: 09/07/18 07:46 Dose: 75 mls/hr Levetiracetam (Keppra Iv) 100 mls @ 400 mls/hr IV Q12 [facility] Last Admin: 09/07/18 09:13 Dose: 400 mls/hr Valproic Acid 1,000 mg/ (Dextrose) 60 mls @ 50 mls/hr IV BID [facility] Last Admin: 09/07/18 09:13 Dose: 50 mls/hr Levothyroxine Sodium (Synthroid) 112 mcg PO DAILY@0600 [facility] Last Admin: 09/07/18 04:43 Dose: Not Given Phenytoin Sodium (Dilantin) 100 mg PO QODAY@0800 [facility] Last Admin: 09/07/18 12:16 Dose: 100 mg Phenytoin Sodium (Dilantin) 50 mg PO QODAY@0800 [facility] Polyethylene Glycol (Miralax) 17 gm PO DAILY [facility] Last Admin: 09/07/18 09:21 Dose: Not Given Senna (Senokot) 1 tablet PO BID [facility] Last Admin: 09/07/18 09:22 Dose: Not Given Sodium Chloride () 5 - 15 ml IV UD PRN PRN Reason: SALINE FLUSH Medical Necessity - Tobacco Use Smoking Status: Never smoker Tobacco Use: Non-smoker Assessment/Plan All Active Problems Aspiration pneumonitis (Acute) Aspiration pneumonia (Acute) Septic shock (Acute) Skin tear (Resolved) 1. Acute hypoxic respiratory failure secondary to aspiration -He does have a history of aspiration in the past and will obtain speech therapy -He initially was placed on antibiotics for possible community-acquired pneumonia however chest x-ray is negative and his white count is normal today -He is also afebrile and is not tachycardic -Currently on room air doing well -Continue with aerosols 2. MRDD/seizure disorder -[facility] in a [facility] which she can be returned to -Continue with his antiseizure medications -Phenytoin level was low 5.3 3. Chronic thrombocytopenia -All his platelet counts have been greater than 50 however his last to have been 41 and 30 -He is not on any heparin or Lovenox -He is on multiple medications including Depakote and Dilantin which can cause thrombus cytopenia -We will continue to monitor and if he does not have any signs of bleeding we will have him follow-up with a mock up assembler. 4. Chronic CHF -Unsure of type -Not currently in exacerbation -Continue with Lasix IV since he is not taking anything p.o. at the moment DVT: SCDs, thrombus cytopenia Code Visit Inpatient E&M: 89786 Subs Hosp L2
--- NOTE | 2018-09-07 12:56 | PN_ITS ---
Patient Problems: Active and Suspected Problems Aspiration pneumonitis (Acute) Subjective: She is to be doing okay however given his MRDD difficult to converse with. Vitals/I&O's: Vital Signs Temp Pulse Resp BP Pulse Ox 95.6 F L 56 L 16 107/60 94 09/07/18 10:21 09/07/18 11:29 09/07/18 12:30 09/07/18 10:21 09/07/18 12:30 Oxygen Delivery Method Room Air Weight: 197 lb 15.99 oz Body Mass Index (BMI) 31.1 Intake and Output for Last 24 Hours 09/05/18 09/06/18 09/07/18 23:59 23:59 23:59 Intake Total 663 / 663 1129.2 / 1129.2 Balance 663 / 663 1129.2 / 1129.2 General: Alert, Cooperative HEENT: Atraumatic, PERRLA, Normocephalic Oral: Moist Mucosa Neck: Supple, No JVD Lungs: Normal air movement, Diminished, Rales Cardiovascular: Regular rate, Regular Rhythm, Normal S1, Normal S2, No murmurs Abdomen: Soft, Non Tender, Non-Distended, No Hepato-splenomegaly Extremities: No edema, Capillary Refill Less than 3 Seconds Skin: No rashes, No breakdown Neurological: Neuro grossly intact, Sensory exam intact to light touch and pain Psych/Mental Status: Flat Affect Microbiology Past 72 Hours 09/07/18 02:30 Urine Catheter - Catheter Streptococcus pneumoniae Antigen (M - Final 09/07/18 02:30 Urine Catheter - Catheter Legionella Antigen - Final Laboratory Results 09/06/18 13:50: WBC 16.0 H, RBC 4.07 L, Hgb 13.3, Hct 39.9 L, MCV 98.0 H, MCH 32.7 H, MCHC 33.3, RDW 17.6 H, RDW Differential 63.1 H, Plt Count 41 L*, MPV 9.6, Immature Gran % (Auto) 0.200, Neut % (Auto) 76.0 H, Lymph % (Auto) 8.7 L, [place] % (Auto) 14.7 H, Eos % (Auto) 0.3, Baso % (Auto) 0.1, Absolute Neuts (auto) 12.2 H, Absolute Lymphs (auto) 1.39, Total Counted Not Reportable, Differential Comment COMMENT, Diff Path Review Reviewed 09/06/18 13:50: Sodium 139, Potassium 4.9, Chloride 102, Carbon Dioxide 29.0, Anion Gap 8, BUN 17, Creatinine 1.16, Estim Creat Clear Calc 68.85, Est GFR (MDRD) Af Amer 85, Est GFR (MDRD) Non-Af 70, BUN/Creatinine Ratio 14.7, Glucose 101, Calcium 8.6, Troponin I < 0.015 09/06/18 13:50: B-Natriuretic Peptide 62.7 09/06/18 13:50: Phenytoin 5.3 L, Valproic Acid 99 09/06/18 18:58: POC Glucose 122 H 09/06/18 22:58: POC Glucose 147 H 09/07/18 05:49: POC Glucose 121 H 09/07/18 05:55: WBC 6.4, RBC 3.74 L, Hgb 12.2 L, Hct 35.7 L, MCV 95.5 H, MCH 32.6 H, MCHC 34.2, RDW 17.2 H, RDW Differential 57.9 H, Plt Count 30 L*, MPV 10.2, Immature Gran % (Auto) 0.500, Neut % (Auto) 66.1, Lymph % (Auto) 16.2 L, [place] % (Auto) 14.8 H, Eos % (Auto) 2.2, Baso % (Auto) 0.2, Absolute Neuts (auto) 4.2, Absolute Lymphs (auto) 1.03, Total Counted Not Reportable, Differential Comment SCANNED, Diff Path Review Reviewed, Platelet Estimate MKD 09/07/18 05:55: Sodium 142, Potassium 4.3, Chloride 107, Carbon Dioxide 27.0, Anion Gap 8, BUN 14, Creatinine 0.88, Estim Creat Clear Calc 87.60, Est GFR (MDRD) Af Amer 117, Est GFR (MDRD) Non-Af 96, BUN/Creatinine Ratio 15.9, Glucose 104, Calcium 7.4 L, Phosphorus 3.4, Total Bilirubin 0.20, AST 31, ALT 31, Alkaline Phosphatase 98, Total Protein 5.8 L, Albumin 2.1 L, Globulin 3.7, Al bumin/Globulin Ratio 0.6 L 09/07/18 10:28: POC Glucose 120 H Current Medications Acetaminophen (Tylenol) 650 mg PO Q6H PRN PRN PRN Reason: Mild Pain (1-3)/Temp > 100.7 F Albuterol Sulfate (Ventolin Aerosols) 2.5 mg INHALATION Q2H PRN PRN PRN Reason: Shortness of Breath/Wheezing Albuterol/Ipratropium (Duoneb) 3 ml INHALATION Q4H.RT [facility] Last Admin: 09/07/18 10:09 Dose: 3 ml Dextrose (D50w Syringe) 0 gm IV X1 PRN; Protocol PRN Reason: Hypoglycemia Furosemide (Lasix) 40 mg PO DAILY [facility] Last Admin: 09/07/18 11:09 Dose: Not Given Glucagon () 1 mg IM .X1 PRN PRN Reason: Hypoglycemia Guaifenesin (Robitussin) 20 ml PO Q4H PRN PRN PRN Reason: COUGH Dextrose/Sodium Chloride (Dextrose 5%/0.9% Nacl) 1,000 mls @ 75 mls/hr IV .[id number] [facility] Last Admin: 09/07/18 07:46 Dose: 75 mls/hr Levetiracetam (Keppra Iv) 100 mls @ 400 mls/hr IV Q12 [facility] Last Admin: 09/07/18 09:13 Dose: 400 mls/hr Valproic Acid 1,000 mg/ (Dextrose) 60 mls @ 50 mls/hr IV BID [facility] Last Admin: 09/07/18 09:13 Dose: 50 mls/hr Levothyroxine Sodium (Synthroid) 112 mcg PO DAILY@0600 [facility] Last Admin: 09/07/18 04:43 Dose: Not Given Phenytoin Sodium (Dilantin) 100 mg PO QODAY@0800 [facility] Last Admin: 09/07/18 12:16 Dose: 100 mg Phenytoin Sodium (Dilantin) 50 mg PO QODAY@0800 [facility] Polyethylene Glycol (Miralax) 17 gm PO DAILY [facility] Last Admin: 09/07/18 09:21 Dose: Not Given Senna (Senokot) 1 tablet PO BID [facility] Last Admin: 09/07/18 09:22 Dose: Not Given Sodium Chloride () 5 - 15 ml IV UD PRN PRN Reason: SALINE FLUSH Medical Necessity - Tobacco Use Smoking Status: Never smoker Tobacco Use: Non-smoker Assessment/Plan All Active Problems Aspiration pneumonitis (Acute) Aspiration pneumonia (Acute) Septic shock (Acute) Skin tear (Resolved) 1. Acute hypoxic respiratory failure secondary to aspiration -He does have a history of aspiration in the past and will obtain speech therapy -He initially was placed on antibiotics for possible community-acquired pneumonia however chest x-ray is negative and his white count is normal today -He is also afebrile and is not tachycardic -Currently on room air doing well -Continue with aerosols 2. MRDD/seizure disorder -He resides in a snf which she can be returned to -Continue with his antiseizure medications -Phenytoin level was low 5.3 3. Chronic thrombocytopenia -All his platelet counts have been greater than 50 however his last to have been 41 and 30 -He is not on any heparin or Lovenox -He is on multiple medications including Depakote and Dilantin which can cause thrombus cytopenia -We will continue to monitor and if he does not have any signs of bleeding we will have him follow-up with a outdoor adventure guides. 4. Chronic CHF -Unsure of type -Not currently in exacerbation -Continue with Lasix IV since he is not taking anything p.o. at the moment DVT: SCDs, thrombus cytopenia Code Visit Inpatient E&M: [id number] Subs Hosp L2
[2018-09-07 15:51] LABS: Bedside Glucose 128 mg/dL (70-110)
[2018-09-07 23:41] LABS: Bedside Glucose 71 mg/dL (70-110)
[2018-09-08] VITALS (14 sets, daily range): BP systolic 99–127; BP diastolic 53–64; PULSE 58–78; RESP 16–20; TEMP 35.2–36.7; O2SAT 92–99
[2018-09-08] MEDS: Ipratropium/Albuterol Sulfate 3 ML AMPUL.NEB INHALATION ×6 (03:00→23:33)
[2018-09-08] MEDS: Levothyroxine 112 MCG Tablet PO (06:37)
[2018-09-08] MEDS: Acetaminophen 325 MG Tablet 650 MG PO (06:37)
[2018-09-08 06:53] LABS: Absolute Lymphocyte Count 0.99 X10^3/ul (0.83-4.51); Absolute Neutrophil Count 5.5 X10^3/uL (2.0-7.7); Eosinophil# 0.21 X10^3/uL; Eosinophils% 2.8 % (0-5); Hematocrit 34.6 % (40-54); Hemoglobin 11.7 g/dl (13.0-16.5); Lymphocyte # 0.99 X10^3/ul (4.0); Lymphocyte % 13.3 % (19-41); Mean Corp Hgb Conc 33.8 g/gl (32-36); Mean Corpuscular Hgb 32.4 pg (27.0-32.0); Mean Corpuscular Volume 95.8 fL (80-94); Mean Platelet Vol. 11.3 fl (6.2-12.0); Monocyte# 0.79 X10^3/uL; Monocyte% 10.6 % (0-10); Neutrophil # 5.45 X10^3/uL (2.7-7.7); Neutrophil % 73.2 % (47-70); RBC Distribution Width CV 17.5 % (11.6-14.6); RBC Distribution Width SD 61.8 fl (35.1-43.9); Red Blood Count 3.61 M/mm3 (4.6-6.2); White Blood Count 7.5 K/mm3 (4.4-11.0)
[2018-09-08 06:54] LABS: Differential Indicated SCAN CRITERIA MET; POSITIVE COUNT YES; POSITIVE DIFFERENTIAL NO; POSITIVE MORPHOLOGY YES; Platelet Count 36 K/mm3 (150-450)
[2018-09-08 07:21] LABS: Platelet Estimate MKD DEC (ADEQ)
--- NOTE | 2018-09-08 08:22 | PCM.PN.HOSP ---
Patient Problems: Active and Suspected Problems Aspiration pneumonitis (Acute) Subjective: His condition remains unchanged. He is nonverbal Vitals/I&O's: Vital Signs Temp Pulse Resp BP Pulse Ox 95.4 F L 63 18 109/57 L 99 09/08/18 02:50 09/08/18 07:26 09/08/18 03:00 09/08/18 02:50 09/08/18 03:00 Oxygen Delivery Method Room Air Weight: 200 lb 13.458 oz Body Mass Index (BMI) 31.1 Intake and Output for Last 24 Hours 09/06/18 09/07/18 09/08/18 23:59 23:59 23:59 Intake Total 663 / 663 1816.2 / 1816.2 Balance 663 / 663 1816.2 / 1816.2 General: Alert, Cooperative, nonverbal HEENT: Atraumatic, PERRLA, Normocephalic Oral: Moist Mucosa Neck: Supple, No JVD Lungs: Normal air movement, Diminished, Rales/rhonchi Cardiovascular: Regular rate, Regular Rhythm, Normal S1, Normal S2, No murmurs Abdomen: Soft, Non Tender, Non-Distended, No Hepato-splenomegaly Extremities: No edema, Capillary Refill Less than 3 Seconds Skin: No rashes, No breakdown Neurological: Neuro grossly intact, Sensory exam intact to light touch and pain Psych/Mental Status: Flat Affect Microbiology Past 72 Hours 09/07/18 02:30 Urine Catheter - Catheter Streptococcus pneumoniae Antigen (M - Final 09/07/18 02:30 Urine Catheter - Catheter Legionella Antigen - Final Laboratory Results 09/06/18 13:50: Diff Path Review Reviewed 09/07/18 05:55: Diff Path Review Reviewed 09/07/18 10:28: POC Glucose 120 H 09/07/18 15:40: POC Glucose 128 H 09/07/18 23:33: POC Glucose 71 09/08/18 05:34: WBC 7.5, RBC 3.61 L, Hgb 11.7 L, Hct 34.6 L, MCV 95.8 H, MCH 32.4 H, MCHC 33.8, RDW 17.5 H, RDW Differential 61.8 H, Plt Count 36 L*, MPV 11.3, Immature Gran % (Auto) 0.100, Neut % (Auto) 73.2 H, Lymph % (Auto) 13.3 L, [place] % (Auto) 10.6 H, Eos % (Auto) 2.8, Baso % (Auto) 0.0, Absolute Neuts (auto) 5.5, Absolute Lymphs (auto) 0.99, Total Counted Not Reportable, Diff Path Review May foll, Platelet Estimate MKD DEC Current Medications Acetaminophen (Tylenol) 650 mg PO Q6H PRN PRN PRN Reason: Mild Pain (1-3)/Temp > 100.7 F Last Admin: 09/08/18 06:37 Dose: 650 mg Albuterol Sulfate (Ventolin Aerosols) 2.5 mg INHALATION Q2H PRN PRN PRN Reason: Shortness of Breath/Wheezing Albuterol/Ipratropium (Duoneb) 3 ml INHALATION Q4H.RT [facility] Last Admin: 09/08/18 07:27 Dose: 3 ml Dextrose (D50w Syringe) 0 gm IV X1 PRN; Protocol PRN Reason: Hypoglycemia Furosemide (Lasix) 40 mg PO DAILY [facility] Last Admin: 09/07/18 11:09 Dose: Not Given Glucagon () 1 mg IM .X1 PRN PRN Reason: Hypoglycemia Guaifenesin (Robitussin) 20 ml PO Q4H PRN PRN PRN Reason: COUGH Levetiracetam (Keppra Iv) 100 mls @ 400 mls/hr IV Q12 [facility] Last Admin: 09/07/18 20:53 Dose: 400 mls/hr Valproic Acid 1,000 mg/ (Dextrose) 60 mls @ 50 mls/hr IV BID [facility] Last Admin: 09/07/18 20:53 Dose: 50 mls/hr Levothyroxine Sodium (Synthroid) 112 mcg PO DAILY@0600 [facility] Last Admin: 09/08/18 06:37 Dose: 112 mcg Phenytoin Sodium (Dilantin) 100 mg PO QODAY@0800 [facility] Last Admin: 09/07/18 12:16 Dose: 100 mg Phenytoin Sodium (Dilantin) 50 mg PO QODAY@0800 [facility] Polyethylene Glycol (Miralax) 17 gm PO DAILY [facility] Last Admin: 09/07/18 09:21 Dose: Not Given Senna (Senokot) 1 tablet PO BID [facility] Last Admin: 09/07/18 21:02 Dose: Not Given Sodium Chloride () 5 - 15 ml IV UD PRN PRN Reason: SALINE FLUSH Medical Necessity - Tobacco Use Smoking Status: Never smoker Tobacco Use: Non-smoker Assessment/Plan All Active Problems Aspiration pneumonitis (Acute) Aspiration pneumonia (Acute) Septic shock (Acute) Skin tear (Resolved) 1. Acute hypoxic respiratory failure secondary to aspiration -He does have a history of aspiration in the past and will obtain speech therapy -He initially was placed on antibiotics for possible community-acquired pneumonia however chest x-ray is negative and his white count is normal we will continue to hold antibiotics -He is also afebrile and is not tachycardic -Currently on room air doing well -Continue with aerosols 2. MRDD/seizure disorder -He resides in a [facility] which she can be returned to -Continue with his antiseizure medications -Phenytoin level was low 5.3 3. Chronic thrombocytopenia -All his platelet counts have been greater than 50 however he is now below 40,000 -He is not on any heparin or Lovenox -He is on multiple medications including Depakote and Dilantin which can cause thrombocytopenia -Given his continued severe thrombus cytopenia, will consult hematology 4. Chronic CHF -Unsure of type -Not currently in exacerbation -Continue with Lasix DVT: SCDs, thrombocytopenia Code Visit Inpatient E&M: [id number] Subs Hosp L2
--- NOTE | 2018-09-08 08:25 | PN_ITS ---
Patient Problems: Active and Suspected Problems Aspiration pneumonitis (Acute) Subjective: His condition remains unchanged. He is nonverbal Vitals/I&O's: Vital Signs Temp Pulse Resp BP Pulse Ox 95.4 F L 63 18 109/57 L 99 09/08/18 02:50 09/08/18 07:26 09/08/18 03:00 09/08/18 02:50 09/08/18 03:00 Oxygen Delivery Method Room Air Weight: 200 lb 13.458 oz Body Mass Index (BMI) 31.1 Intake and Output for Last 24 Hours 09/06/18 09/07/18 09/08/18 23:59 23:59 23:59 Intake Total 663 / 663 1816.2 / 1816.2 Balance 663 / 663 1816.2 / 1816.2 General: Alert, Cooperative, nonverbal HEENT: Atraumatic, PERRLA, Normocephalic Oral: Moist Mucosa Neck: Supple, No JVD Lungs: Normal air movement, Diminished, Rales/rhonchi Cardiovascular: Regular rate, Regular Rhythm, Normal S1, Normal S2, No murmurs Abdomen: Soft, Non Tender, Non-Distended, No Hepato-splenomegaly Extremities: No edema, Capillary Refill Less than 3 Seconds Skin: No rashes, No breakdown Neurological: Neuro grossly intact, Sensory exam intact to light touch and pain Psych/Mental Status: Flat Affect Microbiology Past 72 Hours 09/07/18 02:30 Urine Catheter - Catheter Streptococcus pneumoniae Antigen (M - Final 09/07/18 02:30 Urine Catheter - Catheter Legionella Antigen - Final Laboratory Results 09/06/18 13:50: Diff Path Review Reviewed 09/07/18 05:55: Diff Path Review Reviewed 09/07/18 10:28: POC Glucose 120 H 09/07/18 15:40: POC Glucose 128 H 09/07/18 23:33: POC Glucose 71 09/08/18 05:34: WBC 7.5, RBC 3.61 L, Hgb 11.7 L, Hct 34.6 L, MCV 95.8 H, MCH 32.4 H, MCHC 33.8, RDW 17.5 H, RDW Differential 61.8 H, Plt Count 36 L*, MPV 11.3, Immature Gran % (Auto) 0.100, Neut % (Auto) 73.2 H, Lymph % (Auto) 13.3 L, [place] % (Auto) 10.6 H, Eos % (Auto) 2.8, Baso % (Auto) 0.0, Absolute Neuts (auto) 5.5, Absolute Lymphs (auto) 0.99, Total Counted Not Reportable, Diff Path Review May foll, Platelet Estimate MKD DEC Current Medications Acetaminophen (Tylenol) 650 mg PO Q6H PRN PRN PRN Reason: Mild Pain (1-3)/Temp > 100.7 F Last Admin: 09/08/18 06:37 Dose: 650 mg Albuterol Sulfate (Ventolin Aerosols) 2.5 mg INHALATION Q2H PRN PRN PRN Reason: Shortness of Breath/Wheezing Albuterol/Ipratropium (Duoneb) 3 ml INHALATION Q4H.RT [facility] Last Admin: 09/08/18 07:27 Dose: 3 ml Dextrose (D50w Syringe) 0 gm IV X1 PRN; Protocol PRN Reason: Hypoglycemia Furosemide (Lasix) 40 mg PO DAILY [facility] Last Admin: 09/07/18 11:09 Dose: Not Given Glucagon () 1 mg IM .X1 PRN PRN Reason: Hypoglycemia Guaifenesin (Robitussin) 20 ml PO Q4H PRN PRN PRN Reason: COUGH Levetiracetam (Keppra Iv) 100 mls @ 400 mls/hr IV Q12 [facility] Last Admin: 09/07/18 20:53 Dose: 400 mls/hr Valproic Acid 1,000 mg/ (Dextrose) 60 mls @ 50 mls/hr IV BID [facility] Last Admin: 09/07/18 20:53 Dose: 50 mls/hr Levothyroxine Sodium (Synthroid) 112 mcg PO DAILY@0600 [facility] Last Admin: 09/08/18 06:37 Dose: 112 mcg Phenytoin Sodium (Dilantin) 100 mg PO QODAY@0800 [facility] Last Admin: 09/07/18 12:16 Dose: 100 mg Phenytoin Sodium (Dilantin) 50 mg PO QODAY@0800 [facility] Polyethylene Glycol (Miralax) 17 gm PO DAILY [facility] Last Admin: 09/07/18 09:21 Dose: Not Given Senna (Senokot) 1 tablet PO BID [facility] Last Admin: 09/07/18 21:02 Dose: Not Given Sodium Chloride () 5 - 15 ml IV UD PRN PRN Reason: SALINE FLUSH Medical Necessity - Tobacco Use Smoking Status: Never smoker Tobacco Use: Non-smoker Assessment/Plan All Active Problems Aspiration pneumonitis (Acute) Aspiration pneumonia (Acute) Septic shock (Acute) Skin tear (Resolved) 1. Acute hypoxic respiratory failure secondary to aspiration -He does have a history of aspiration in the past and will obtain speech therapy -He initially was placed on antibiotics for possible community-acquired pneumonia however chest x-ray is negative and his white count is normal we will continue to hold antibiotics -He is also afebrile and is not tachycardic -Currently on room air doing well -Continue with aerosols 2. MRDD/seizure disorder -He resides in a care home which she can be returned to -Continue with his antiseizure medications -Phenytoin level was low 5.3 3. Chronic thrombocytopenia -All his platelet counts have been greater than 50 however he is now below 40,000 -He is not on any heparin or Lovenox -He is on multiple medications including Depakote and Dilantin which can cause thrombocytopenia -Given his continued severe thrombus cytopenia, will consult hematology 4. Chronic CHF -Unsure of type -Not currently in exacerbation -Continue with Lasix DVT: SCDs, thrombocytopenia Code Visit Inpatient E&M: [id number] Subs Hosp L2
[2018-09-08] MEDS: levETIRAcetam IV 100 ML 400 MG IV (08:54)
[2018-09-08] MEDS: Furosemide 40 MG Tablet PO (08:54)
[2018-09-08] MEDS: Senna Tablet 1 TABLET PO (08:54)
[2018-09-08] MEDS: Polyethylene Glycol 3350 17 GM PACKET PO (08:55)
[2018-09-08] MEDS: Phenytoin Na 100 MG/4 ML UDC 50 MG PO (08:55)
--- NOTE | 2018-09-08 10:23 | CASEMGMT ---
ELHAM called Monika patient's caregiver at the care home. She said they would need patient's discharge summary and instructions. They would be able to transport him as long as it is between 10a and 2p. She asked if patient was being discharged and ELHAM told her SW is not sure yet, but can let her know. She said he has 24/7 care and they have all the necessary equipment to care for patient. Afsaneh FOX MSW
[2018-09-08 14:29] LABS: Pathologist Review Reviewed
[2018-09-08] MEDS: Divalproex Sodium 250 MG Tablet PO (15:30)
[2018-09-08] MEDS: Divalproex Sodium 250 MG Tablet 500 MG PO (15:31)
--- NOTE | 2018-09-08 16:15 | CON.PCM_ITS ---
- Problem List (1) Thrombocytopenia Status: Chronic Consult Referring Physician: Hospitalist Consult Results: Thrombocytopenia Subjective Date of Service:: 09/08/18 Chief Complaint: Hypoxia History of Present Illness: Patient is a profoundly mentally disabled male admitted with acute respiratory failure and suspected aspiration. Hematology consult for worsening of a chronic (years) thrombocytopenia. See table of outside sales representative insurance platelet counts: Laboratory Tests 01/15/12 03/01/13 11/28/13 19:55 10:25 16:23 Plt Count 126 L 114 L 133 L 03/20/15 10/01/15 03/21/17 10:12 10:20 05:57 Plt Count 85 L 105 L 96 L 08/17/18 09/06/18 09/07/18 11:01 13:50 05:55 Plt Count 79 L 41 L* 30 L* 09/08/18 05:34 Plt Count 36 L* Past Medical History: Chronic Problems Thrombocytopenia (Chronic) Seizure disorder (Chronic) Mental retardation (Chronic) Past Medical/Surgical History: Past Medical History - Most Recent Inpatient Visit Past Medical History Start: 09/06/18 16:20 Text: Status: Complete Freq: ONCE Protocol: Document 09/06/18 16:25 J (Rec: 09/06/18 16:28 [id number]) BMI Required to complete PMH What is Patient's BMI 31.1 Past Medical History Unable History Recalled No Query Text:Pt Unable/Family Not Present Neurologic Medical History Hx Dementia/Alzheimer's No Hx Parkinson's Disease No Hx Seizures Yes Hx Multiple Sclerosis No Hx Migraines No Cardiac Medical History VTE Present on Admission No Hx of Deep Vein Thrombosis/VTE/PE No Hx Hypertension No Hx Chest Pain/Angina No Hx Heart Attack No Hx Cardiac Surgery/Stents/Etc. No Hx Heart Failure No Hx Pacemaker/AICD No Hx Irregular Heartbeat and/or Afib No Hx Anticoagulant Therapy No Query Text:(Coumadin, Aspirin, Plavix, Xarelto, etc.) Hx Pain in Legs when Walking/Leg Cramps No Respiratory Medical History Hx COPD No Hx Emphysema No Hx Smoking No Smoking Status Never smoker Hx Smoking Exposure No Hx Tobacco Use in last 12 months No Hx of Pipe Smoking No Hx of Cigar Smoking No Hx Sleep Apnea No Do you snore loudly (louder than talking No or can be heard through closed doors)? Do you often feel tired/ fatigued/ No sleepy during daytime? Has anyone observed you stop breathing Yes during sleep? STOP Results Negative GI Medical History Hx Ulcer No Hx Hepatitis No Hx Cirrhosis No Hx GI Bleed Yes Hx Unplanned Weight Loss No Genitourinary Medical History Indwelling Catheter in Place on Arrival/ No Admission Hx Renal Disease No Hx Dialysis No Musculoskeletal History Hx Arthritis No Hx Rheumatoid Arthritis No Endocrine Medical History Hx Diabetes No Hx Thyroid Disease No Hematologic Medical History Hx of Blood Transfusion No Hx of Transfusion in last 3 Months No Ever experience any problems with No transfusion(s)? Hx of Preganancy in last 3 Months N/A Nurse Filling Out Transfusion & JLAMP Questions: Date: 09/06/18 Time: 16:27 Psycho/Social Medical History Hx Depression No Hx Anxiety No Hx Behavior Disorder No Hx Alcohol Use No Hx Substance Use No Other Medical History Hx Blood Disorders No Hx Anemia No Hx Cancer Yes: melanoma, colon ca Hx Drug Resistant Organism No Wound/Pressure Injury Present on Arrival Yes: wounds on arms /Admission Query Text:If yes, chart assessment in Shift/Clinical Findings Central Line/PICC/VAD Present on Arrival No /Admission Antibiotics within last 7 days? No Risk for Readmission Number of Risk Factors 2 At Risk for Readmission Patient is At Risk For Readmission Patient is eligible for Call Back Y Maternal Family History: Unknown - Social History Lives: - - Lives in a senior care Smoking Status: Never smoker Tobacco Use: Non-smoker Alcohol: None Drugs: None Allergies/Adverse Reactions: Allergy/AdvReac Type Severity Reaction Status Date / Time formaldehyde Allergy Unknown Verified 09/06/18 11:39 Iodinated Contrast- Oral and Allergy Unknown Verified 09/06/18 11:39 IV Dye iodine Allergy Unknown Verified 09/06/18 11:39 Review of Systems Unable to obtain accurate/complete ROS d/t: Patient profoundly mentally disabled and noncommunicative. Comment: Reviewed records in EMR, no reported bleeding Vital Signs Height 5 ft 6.93 in Weight: 91.1 kg Weight in Pounds 200.8 lbs Pulse Ox 96 Temperature 98.1 F Pulse Rate 62 Respiratory Rate 20 Blood Pressure 109/64 Blood Pressure Position Supine - Physical Exam General: No apparent distress, Lethargic, - - Patient is noncommunicative, opens eyes to verbal and touch commands HEENT: Atraumatic, PERRLA, EOMI, Normocephalic Neck:: Supple, Trachea midline Cardiac:: Regular rate, Regular rhythm, Normal S1, Normal S2. Negative for: Murmur Lungs: Diminished Abdomen:: Soft, Non-tender Extremities:: Edema. Negative for: Cyanosis Neurological: - - Opens eyes to touch and verbal stimulation otherwise noncommunicative Skin:: Ecchymosis - At venipuncture sites but no purpura Lymphatics:: Negative for: Cervical lymphadenopathy, Supraclavicular lymphadenopathy, Axillary lymphadenopathy Laboratory Data: Microbiology 09/06/18 15:10 Blood Culture - Preliminary Blood Culture (Wb) - Anticubital Right No growth in 48 hours. 09/07/18 02:30 Streptococcus pneumoniae Antigen (M - Final Urine Catheter - Catheter 09/07/18 02:30 Legionella Antigen - Final Urine Catheter - Catheter Laboratory Tests 09/08/18 09/07/18 Range/Units 05:34 23:33 WBC 7.5 (4.4-11.0) K/mm3 RBC 3.61 L (4.6-6.2) M/mm3 Hgb 11.7 L (13.0-16.5) g/dl Hct 34.6 L (40-54) % MCV 95.8 H (80-94) fL MCH 32.4 H (27.0-32.0) pg MCHC 33.8 (32-36) g/gl RDW 17.5 H (11.6-14.6) % RDW Differential 61.8 H (35.1-43.9) fl Plt Count 36 L* (150-450) K/mm3 MPV 11.3 (6.2-12.0) fl Immature Gran % (Auto) 0.100 (0.0-0.9) % Neut % (Auto) 73.2 H (47-70) % Lymph % (Auto) 13.3 L (19-41) % [place] % (Auto) 10.6 H (0-10) % Eos % (Auto) 2.8 (0-5) % Baso % (Auto) 0.0 (0-1) % Absolute Neuts (auto) 5.5 (2.0-7.7) X10^3/uL Absolute Lymphs (auto) 0.99 (0.83-4.51) X10^3/ul Total Counted Not Reportable Diff Path Review Reviewed Platelet Estimate MKD DEC (ADEQ) POC Glucose 71 (70-110) mg/dL I personally reviewed patient's peripheral blood smear, myeloid and erythroid lineages are unremarkable and platelets were significantly decreased in number but no abnormal or giant forms seen Diagnostic Data: Diagnostic Data Chest X-Ray 09/06/18 12:32 IMPRESSION: No acute abnormality is seen. Electronically Signed: Jesus Lobato, at 14:54 EDT , Service support , Assessment and Plan 53-year-old male with a chronic moderately severe thrombocytopenia worsening during acute illness. Apart from bruises at venipuncture sites there is no active bleeding and no evidence to suggest thrombosis. His thrombocytopenia is most likely multifactorial including drug side effects in particular antiepileptics with acute worsening during acute illness. There is no record of recent exposure to heparin and no evidence to suggest thrombotic microangiopathy. Recommendation: 1. Watch the platelet count over the course of the upcoming few days. 2. Prophylactic platelet transfusions are not indicated unless the platelet count is less than 10,000 or the patient has a significant bleeding. 3. Use non-pharmacologic VTE prophylaxis with platelet count less than 50 K due to increased risk for bleeding. 4. Treatment of any acute illness as per primary service. Edmund Powell MD Machine Shop Specialist, [facility] Divisions of Medical Oncology & Hematology Department of Internal Medicine [place] [phone] This note was generated using a voice recognition system software. Although it was reviewed by the author prior to finalization, it may still contain incorrect words, spelling, and punctuation that were not noted when reviewing prior to saving. If a clinically significant typo or inaccurately typed phrase is noted, please notify the author. Medications: Prescriptions This Visit Medication Instructions Recorded Cetirizine HCl 10 mg PO DAILY 09/06/18 Divalproex Sodium [Depakote] 250 mg PO TID 09/06/18 Famotidine 20 mg PO BID 09/06/18 Furosemide 40 mg PO DAILY 09/06/18 Guaifenesin [Mucinex] 600 mg PO BID 09/06/18 Ketoconazole 1 applic TP BID 09/06/18 Levothyroxine [Synthroid] 112 mcg PO DAILY 09/06/18 Meloxicam 7.5 mg PO DAILY 09/06/18 Nystatin 1 applic TP BID 09/06/18 Phenytoin [Dilantin] 50 mg PO QODAY 09/06/18 Potassium Chloride 20 meq PO DAILY 09/06/18 Triamcinolone 0.1% Ointment 1 applic TP BID 09/06/18 [Kenalog] Zinc Oxide [Desitin] 113 gm TP BID 09/06/18 Medications Added to Medication List This Visit Category Date Time Status Divalproex Sodium [Depakote] Med 09/08/18 22:00 Active 1,000 mg PO QHS Divalproex Sodium [Depakote] Med 09/08/18 16:00 Active 250 mg PO TID@0800,1600,2000 Divalproex Sodium [Depakote] Med 09/08/18 16:00 Active 500 mg PO BID@0800,1600 Phenytoin Na [Dilantin] Med 09/08/18 08:00 Active 50 mg PO QODAY@0800 levETIRAcetam tablet [Keppra tablet] Med 09/08/18 22:00 Active 1,000 mg PO BID Primary Care Provider: Andrea Zimmerman MD Referring Provider: Diane Porras MD
--- NOTE | 2018-09-08 21:30 | NURSING ---
Pt refusing to take oral medications at this time. Several attempts made with varying food items, pt shakes head and will not open his mouth. Will notify .
[2018-09-08] MEDS: levETIRAcetam IV 1,000 MG/100 ML BAG 400 MG IV (23:55)
[2018-09-09] VITALS (7 sets, daily range): BP systolic 94–100; BP diastolic 43–55; PULSE 62–78; RESP 18–20; TEMP 36.3–36.6; O2SAT 92–94
[2018-09-09] MEDS: Ipratropium/Albuterol Sulfate 3 ML AMPUL.NEB INHALATION ×3 (03:52→11:04)
[2018-09-09 06:23] LABS: Absolute Lymphocyte Count 1.29 X10^3/ul (0.83-4.51); Absolute Neutrophil Count 3.5 X10^3/uL (2.0-7.7); Eosinophil# 0.25 X10^3/uL; Eosinophils% 4.3 % (0-5); Hematocrit 34.4 % (40-54); Hemoglobin 11.6 g/dl (13.0-16.5); Lymphocyte # 1.29 X10^3/ul (4.0); Lymphocyte % 22.4 % (19-41); Mean Corp Hgb Conc 33.7 g/gl (32-36); Mean Corpuscular Hgb 32.2 pg (27.0-32.0); Mean Corpuscular Volume 95.6 fL (80-94); Mean Platelet Vol. 11.2 fl (6.2-12.0); Monocyte# 0.74 X10^3/uL; Monocyte% 12.8 % (0-10); Neutrophil # 3.47 X10^3/uL (2.7-7.7); Neutrophil % 60.3 % (47-70); RBC Distribution Width CV 17.5 % (11.6-14.6); RBC Distribution Width SD 61.6 fl (35.1-43.9); White Blood Count 5.8 K/mm3 (4.4-11.0)
[2018-09-09 06:27] LABS: Differential Indicated SCAN CRITERIA MET; POSITIVE COUNT YES; POSITIVE DIFFERENTIAL NO; POSITIVE MORPHOLOGY NO; Platelet Count 35 K/mm3 (150-450)
[2018-09-09] MEDS: 0.9% NaCl Peripheral Flush Adult/Peds IV (06:27)
[2018-09-09] MEDS: Levothyroxine 112 MCG Tablet PO (06:27)
[2018-09-09 06:55] LABS: Differential Comment SCANNED
[2018-09-09] MEDS: Divalproex Sodium 250 MG Tablet 500 MG PO (09:40)
[2018-09-09] MEDS: Divalproex Sodium 250 MG Tablet PO (09:40)
[2018-09-09] MEDS: levETIRAcetam 1,000 MG Tablet 1000 MG PO (09:41)
[2018-09-09] MEDS: Senna Tablet 1 TABLET PO (09:41)
[2018-09-09] MEDS: Polyethylene Glycol 3350 17 GM PACKET PO (09:41)
[2018-09-09] MEDS: Furosemide 40 MG Tablet PO (09:41)
[2018-09-09] MEDS: Phenytoin Na 100 MG Capsule PO (09:41)
--- NOTE | 2018-09-09 09:41 | PCM.DC ---
- Discharge Diagnoses Current Active Problems: Current Active and Chronic Problems Aspiration pneumonitis (Acute) Thrombocytopenia (Chronic) You will use the following diet at home:: Regular, Other - Pt. agreeable to Tx. Pt. currently placed on a mechanical soft textured, thin liquid diet w/ the following recommended aspiration precautions in place: TOTAL feed by staff / caregivers, reduced bolus volume and rate of ingestion, seated at 90 degrees during PO intake, remain upright for 30-60 minutes post intake (GERD precaution), medications whole w/ purees. 09/06/2018 CXR revealed no acute abnormality. 08/16/2013 MBS revealed mild oropharyngeal dysphagia without penetration or aspiration. Spoke w/ RN Nelly, little to no intake w/ staff assistance; often refusing medication administration; improved compliance w/ familiar retirement staff presence. BUL rhonchi upon auscultation of breath sounds, per old coin dealer. O2 via room air. Attempted trials of preferred thin liquids, though the Pt. declined (non-verbal; turning head away on multiple attempts). Unable to obtain any relevant clinical information through assessment aside from staff report, which additionally is complicated by his non-compliance (likely associated w/ unfamiliar caregivers, as his retirement caregiver reports he is understandably quite particular at their facility w/ newer care providers). No overt s/s of aspiration has been appreciated, though Pt. is at higher risk for silent aspiration; proceed w/ objective assessment under fluoroscopy if silent aspiration is suspected. Will continue Tx. as per POC. Your food should be the consistency of: Mechanical soft (ground) Your liquids should be the consistency of: Regular/Thin Call your doctor if you observe: Fever of 101 or Higher, Shortness of breath, Dizziness, Fainting spells, Swelling in the ankles, Chest pain, Increased palpitations (irregular heartbeat) Allergies/Adverse Reactions: Allergies formaldehyde Allergy (Verified 09/06/18 11:39) Unknown Iodinated Contrast- Oral and IV Dye Allergy (Verified 09/06/18 11:39) Unknown iodine Allergy (Verified 09/06/18 11:39) Unknown Medications to take at Discharge Calcium Carbonate/Vitamin D3 [Oyster Shell 500-Vit D3 200 Tb] 1 each PO DAILY 10/06/17 Divalproex Sodium [Depakote] 1,000 mg PO QHS 10/06/17 Divalproex Sodium [Depakote] 500 mg PO BID 10/06/17 Levetiracetam [Keppra] 1,000 mg PO BID 10/06/17 Minocycline HCl [Minocin] 50 mg PO QHS 10/06/17 Phenytoin Sodium Extended [Dilantin] 100 mg PO QODAY 10/06/17 Polyethylene Glycol 3350 [Miralax] 17 gm PO DAILY 10/06/17 Sennosides [Senna Lax] 8.6 mg PO DAILY 10/06/17 Cetirizine HCl 10 mg PO DAILY 09/06/18 Divalproex Sodium [Depakote] 250 mg PO TID 09/06/18 Famotidine 20 mg PO BID 09/06/18 Furosemide 40 mg PO DAILY 09/06/18 Guaifenesin [Mucinex] 600 mg PO BID 09/06/18 Ketoconazole 1 applic TP BID 09/06/18 Levothyroxine [Synthroid] 112 mcg PO DAILY 09/06/18 Meloxicam 7.5 mg PO DAILY 09/06/18 Nystatin 1 applic TP BID 09/06/18 Phenytoin [Dilantin] 50 mg PO QODAY 09/06/18 Potassium Chloride 20 meq PO DAILY 09/06/18 Triamcinolone 0.1% Ointment [Kenalog] 1 applic TP BID 09/06/18 Zinc Oxide [Desitin] 113 gm TP BID 09/06/18 Primary Care Physician: Andrea Zimmerman Chi, MD [Primary Care Provider] - Please follow up with your Primary Care Physician in: 3-5 days Test Results: Test results from this visit will be discussed in further detail at your follow-up appointment, if applicable.
--- NOTE | 2018-09-09 09:44 | DCINST_ITS ---
- Discharge Diagnoses Current Active Problems: Current Active and Chronic Problems Aspiration pneumonitis (Acute) Thrombocytopenia (Chronic) You will use the following diet at home:: Regular, Other - Pt. agreeable to Tx. Pt. currently placed on a mechanical soft textured, thin liquid diet w/ the following recommended aspiration precautions in place: TOTAL feed by staff / caregivers, reduced bolus volume and rate of ingestion, seated at 90 degrees during PO intake, remain upright for 30-60 minutes post intake (GERD precaution), medications whole w/ purees. 09/06/2018 CXR revealed no acute abnormality. 08/16/2013 MBS revealed mild oropharyngeal dysphagia without penetration or aspiration. Spoke w/ RN Nelly, little to no intake w/ staff assistance; often refusing medication administration; improved compliance w/ familiar [facility] staff presence. BUL rhonchi upon auscultation of breath sounds, per mixed animal veterinarian. O2 via room air. Attempted trials of preferred thin liquids, though the Pt. declined (non-verbal; turning head away on multiple attempts). Unable to obtain any relevant clinical information through assessment aside from staff report, which additionally is complicated by his non-compliance (likely associated w/ unfamiliar caregivers, as his [facility] caregiver reports he is understandably quite particular at their facility w/ newer care providers). No overt s/s of aspiration has been appreciated, though Pt. is at higher risk for silent aspiration; proceed w/ objective assessment under fluoroscopy if silent aspiration is suspected. Will continue Tx. as per POC. Your food should be the consistency of: Mechanical soft (ground) Your liquids should be the consistency of: Regular/Thin Call your doctor if you observe: Fever of 101 or Higher, Shortness of breath, Dizziness, Fainting spells, Swelling in the ankles, Chest pain, Increased palpitations (irregular heartbeat) Allergies/Adverse Reactions: Allergies formaldehyde Allergy (Verified 09/06/18 11:39) Unknown Iodinated Contrast- Oral and IV Dye Allergy (Verified 09/06/18 11:39) Unknown iodine Allergy (Verified 09/06/18 11:39) Unknown Medications to take at Discharge Calcium Carbonate/Vitamin D3 [Oyster Shell 500-Vit D3 200 Tb] 1 each PO DAILY 10/06/17 Divalproex Sodium [Depakote] 1,000 mg PO QHS 10/06/17 Divalproex Sodium [Depakote] 500 mg PO BID 10/06/17 Levetiracetam [Keppra] 1,000 mg PO BID 10/06/17 Minocycline HCl [Minocin] 50 mg PO QHS 10/06/17 Phenytoin Sodium Extended [Dilantin] 100 mg PO QODAY 10/06/17 Polyethylene Glycol 3350 [Miralax] 17 gm PO DAILY 10/06/17 Sennosides [Senna Lax] 8.6 mg PO DAILY 10/06/17 Cetirizine HCl 10 mg PO DAILY 09/06/18 Divalproex Sodium [Depakote] 250 mg PO TID 09/06/18 Famotidine 20 mg PO BID 09/06/18 Furosemide 40 mg PO DAILY 09/06/18 Guaifenesin [Mucinex] 600 mg PO BID 09/06/18 Ketoconazole 1 applic TP BID 09/06/18 Levothyroxine [Synthroid] 112 mcg PO DAILY 09/06/18 Meloxicam 7.5 mg PO DAILY 09/06/18 Nystatin 1 applic TP BID 09/06/18 Phenytoin [Dilantin] 50 mg PO QODAY 09/06/18 Potassium Chloride 20 meq PO DAILY 09/06/18 Triamcinolone 0.1% Ointment [Kenalog] 1 applic TP BID 09/06/18 Zinc Oxide [Desitin] 113 gm TP BID 09/06/18 Primary Care Physician: Andrea Zimmerman Chi, MD [Primary Care Provider] - Please follow up with your Primary Care Physician in: 3-5 days Test Results: Test results from this visit will be discussed in further detail at your follow- up appointment, if applicable.
--- NOTE | 2018-09-09 10:35 | PCM.DC.SUM ---
Discharge Date and Diagnosis - Problem List Patient Problems: Active and Suspected Problems Aspiration pneumonitis (Acute) Date of Admission: 09/06/18 Date of Discharge: 09/09/18 - Primary Discharge Diagnosis Active and Suspected Problems Aspiration pneumonitis (Acute) - Secondary Discharge Diagnosis Chronic Problems Thrombocytopenia (Chronic) Seizure disorder (Chronic) Mental retardation (Chronic) Hospital Course and Treatment Imaging Results: CXR: IMPRESSION: No acute abnormality is seen. Consults: Hematology Operations: None Procedures: None Summary of Care Provided: Per HPI: The patient is a 53 year old M past medical history of MRDD, resident in a skilled nursing, who was brought in with complaints of hypoxia. Patient was found to be saturating 80% on room air when the EMS got there. This was reportedly improved with oxygen via nonrebreather . I am unable to get any history from him as he is nonverbal. History of CHF, on Lasix Vitals in the ED showed pressure of 90 5.3F, heart rate 61, blood pressure 135/1 4 1, respiratory rate was 20, SPO2 was 98% on room air. Admitting blood work showed WBC count of 16.0, hemoglobin 13.3, platelet count is 41. BMP is unremarkable, troponins are negative, BN pep is 62.7, checks x-ray shows no acute abnormalities Hospital Course: 1. Acute hypoxic respiratory failure secondary to aspiration/MRDD/seizure [id number] male who presents with MRDD secondary to seizure disorder that started at 4 months old. He has continued to decline throughout his life from being able to ambulate to being nonverbal and bedridden. He presented to the hospital initially with oxygen saturation of 80% and in the EMS. However when he was admitted he was on room air. He was given a dose of Zosyn in the ER but otherwise because of his lack of fever and leukocytosis the antibiotics were not continued. He is continued to do well off of antibiotics and has been eating and taking his medications. He does appear to aspirate or choke at times either on his saliva or on his food. I discussed with the mother who was present at bedside on the day of discharge about advanced care planning. We spent over 20 minutes talking about what can be offered and what improvements can be expected and the fact that he will continue to decline and therefore it is reasonable to pursue some amount of comfort care at the skilled nursing. She did state that he is currently a DNR CCA and that she does agree that he is continuing to decline and that the improvement is unlikely. She will discuss this with the skilled nursing and his primary care doctor as well. She states that she understood and agrees to the plan going forward. 2. Acute on chronic thrombocytopenia-for quite a while now he has had a platelet count between 50 and 100,000 however on admission he was found to have a platelet count of 41 which then decreased into the 30s. Hematology was consulted and they felt that this was likely secondary to an acute reaction to the aspiration plus his chronic thrombocytopenia. They did not recommend any further work-up and to have a follow-up CBC in 1 to 2 weeks which can be done as an outpatient by his PCP. 3. Chronic CHF-could not find an echo in our records to indicate whether this is diastolic or systolic however he is on Lasix p.o. which we will continue. Part of his lower extremity edema which is nonpitting is secondary to his immobility. We will continue with his home Lasix at his current dose. Patient Problems: Active and Suspected Problems Aspiration pneumonitis (Acute) Objective: General: Alert, Cooperative, nonverbal HEENT: Atraumatic, PERRLA, Normocephalic Oral: Moist Mucosa Neck: Supple, No JVD Lungs: Normal air movement, Diminished, Rales/rhonchi greater on the right than the left Cardiovascular: Regular rate, Regular Rhythm, Normal S1, Normal S2, No murmurs Abdomen: Soft, Non Tender, Non-Distended, No Hepato-splenomegaly Extremities: No edema, Capillary Refill Less than 3 Seconds Skin: No rashes, No breakdown Neurological: Neuro grossly intact, Sensory exam intact to light touch and pain Psych/Mental Status: Flat Affect - Physical Exam Vital Signs Temp Pulse Resp BP Pulse Ox 97.4 F L 78 18 94/43 L 92 09/09/18 03:30 09/09/18 07:34 09/09/18 07:34 09/09/18 03:30 09/09/18 03:30 Oxygen Delivery Method Room Air Weight: 194 lb 10.691 oz Body Mass Index (BMI) 31.1 Intake and Output for Last 24 Hours 09/07/18 09/08/18 09/09/18 23:59 23:59 23:59 Intake Total 1816.2 / 1816.2 591 / 591 116 / 116 Balance 1816.2 / 1816.2 591 / 591 116 / 116 Microbiology Past 72 Hours 09/06/18 15:10 Blood Culture - Preliminary Blood Culture (Wb) - Anticubital Right No growth in 48 hours. 09/07/18 02:30 Streptococcus pneumoniae Antigen (M - Final Urine Catheter - Catheter 09/07/18 02:30 Legionella Antigen - Final Urine Catheter - Catheter Laboratory Tests Past 24 Hrs 09/08/18 09/09/18 05:34 05:50 WBC 5.8 RBC 3.60 L Hgb 11.6 L Hct 34.4 L MCV 95.6 H MCH 32.2 H MCHC 33.7 RDW 17.5 H RDW Differential 61.6 H Plt Count 35 L* MPV 11.2 Immature Gran % (Auto) 0.200 Neut % (Auto) 60.3 Lymph % (Auto) 22.4 [place] % (Auto) 12.8 H Eos % (Auto) 4.3 Baso % (Auto) 0.0 Absolute Neuts (auto) 3.5 Absolute Lymphs (auto) 1.29 Total Counted Not Reportable Differential Comment SCANNED Diff Path Review Reviewed May foll Call your doctor if you observe: Fever of 101 or Higher, Shortness of breath, Dizziness, Fainting spells, Swelling in the ankles, Chest pain, Increased palpitations (irregular heartbeat) Home Medications: Medications to take at Discharge Calcium Carbonate/Vitamin D3 [Oyster Shell 500-Vit D3 200 Tb] 1 each PO DAILY 10/06/17 Divalproex Sodium [Depakote] 1,000 mg PO QHS 10/06/17 Divalproex Sodium [Depakote] 500 mg PO BID 10/06/17 Levetiracetam [Keppra] 1,000 mg PO BID 10/06/17 Minocycline HCl [Minocin] 50 mg PO QHS 10/06/17 Phenytoin Sodium Extended [Dilantin] 100 mg PO QODAY 10/06/17 Polyethylene Glycol 3350 [Miralax] 17 gm PO DAILY 10/06/17 Sennosides [Senna Lax] 8.6 mg PO DAILY 10/06/17 Cetirizine HCl 10 mg PO DAILY 09/06/18 Divalproex Sodium [Depakote] 250 mg PO TID 09/06/18 Famotidine 20 mg PO BID 09/06/18 Furosemide 40 mg PO DAILY 09/06/18 Guaifenesin [Mucinex] 600 mg PO BID 09/06/18 Ketoconazole 1 applic TP BID 09/06/18 Levothyroxine [Synthroid] 112 mcg PO DAILY 09/06/18 Meloxicam 7.5 mg PO DAILY 09/06/18 Nystatin 1 applic TP BID 09/06/18 Phenytoin [Dilantin] 50 mg PO QODAY 09/06/18 Potassium Chloride 20 meq PO DAILY 09/06/18 Triamcinolone 0.1% Ointment [Kenalog] 1 applic TP BID 09/06/18 Zinc Oxide [Desitin] 113 gm TP BID 09/06/18 Primary Care Physician: Andrea Zimmerman Chi, MD [Primary Care Provider] - Please follow up with your Primary Care Physician in: 3-5 days Please Follow Up With: Andrea Zimmerman Chi, MD Disposition: Home Minutes spent on discharge:: 35 Patient Condition:: Stable Medical Necessity - Tobacco Use Smoking Status: Never smoker Tobacco Use: Non-smoker Meaningful Use Info Meaningful Use Diagnoses (Choose all that apply): None applicable Code Visit Inpatient E&M: 06283 Disch Hosp Procedures: 67947 Advncd Care Plan 30 Min
--- NOTE | 2018-09-09 10:42 | DS.PCM_ITS ---
Discharge Date and Diagnosis - Problem List Patient Problems: Active and Suspected Problems Aspiration pneumonitis (Acute) Date of Admission: 09/06/18 Date of Discharge: 09/09/18 - Primary Discharge Diagnosis Active and Suspected Problems Aspiration pneumonitis (Acute) - Secondary Discharge Diagnosis Chronic Problems Thrombocytopenia (Chronic) Seizure disorder (Chronic) Mental retardation (Chronic) Hospital Course and Treatment Imaging Results: CXR: IMPRESSION: No acute abnormality is seen. Consults: Hematology Operations: None Procedures: None Summary of Care Provided: Per HPI: The patient is a 53 year old M past medical history of MRDD, resident in a half-way, who was brought in with complaints of hypoxia. Patient was found to be saturating 80% on room air when the EMS got there. This was reportedly improved with oxygen via nonrebreather . I am unable to get any history from him as he is nonverbal. History of CHF, on Lasix Vitals in the ED showed pressure of 90 5.3F, heart rate 61, blood pressure 135/1 4 1, respiratory rate was 20, SPO2 was 98% on room air. Admitting blood work showed WBC count of 16.0, hemoglobin 13.3, platelet count is 41. BMP is un remarkable, troponins are negative, BN pep is 62.7, checks x-ray shows no acute abnormalities Hospital Course: 1. Acute hypoxic respiratory failure secondary to aspiration/MRDD/seizure arlene [id number]-[id number]-old male who presents with MRDD secondary to seizure disorder that started at 4 months old. He has continued to decline throughout his life from being able to ambulate to being nonverbal and bedridden. He presented to the hospital initially with oxygen saturation of 80% and in the EMS. However when he was admitted he was on room air. He was given a dose of Zosyn in the ER but otherwise because of his lack of fever and leukocytosis the antibiotics were not continued. He is continued to do well off of antibiotics and has been eating and taking his medications. He does appear to aspirate or choke at times either on his saliva or on his food. I discussed with the mother who was present at bedside on the day of discharge about advanced care planning. We spent over 20 minutes talking about what can be offered and what improvements can be expected and the fact that he will continue to decline and therefore it is reasonable to pursue some amount of comfort care at the half-way. She did state that he is currently a DNR CCA and that she does agree that he is continuing to decline and that the improvement is unlikely. She will discuss this with the half-way and his primary care doctor as well. She states that she understood and agrees to the plan going forward. 2. Acute on chronic thrombocytopenia-for quite a while now he has had a platelet count between 50 and 100,000 however on admission he was found to have a platelet count of 41 which then decreased into the 30s. Hematology was consulted and they felt that this was likely secondary to an acute reaction to the aspiration plus his chronic thrombocytopenia. They did not recommend any further work-up and to have a follow-up CBC in 1 to 2 weeks which can be done as an outpatient by his PCP. 3. Chronic CHF-could not find an echo in our records to indicate whether this is diastolic or systolic however he is on Lasix p.o. which we will continue. Part of his lower extremity edema which is nonpitting is secondary to his immobility. We will continue with his home Lasix at his current dose. Patient Problems: Active and Suspected Problems Aspiration pneumonitis (Acute) Objective: General: Alert, Cooperative, nonverbal HEENT: Atraumatic, PERRLA, Normocephalic Oral: Moist Mucosa Neck: Supple, No JVD Lungs: Normal air movement, Diminished, Rales/rhonchi greater on the right than the left Cardiovascular: Regular rate, Regular Rhythm, Normal S1, Normal S2, No murmurs Abdomen: Soft, Non Tender, Non-Distended, No Hepato-splenomegaly Extremities: No edema, Capillary Refill Less than 3 Seconds Skin: No rashes, No breakdown Neurological: Neuro grossly intact, Sensory exam intact to light touch and pain Psych/Mental Status: Flat Affect - Physical Exam Vital Signs Temp Pulse Resp BP Pulse Ox 97.4 F L 78 18 94/43 L 92 09/09/18 03:30 09/09/18 07:34 09/09/18 07:34 09/09/18 03:30 09/09/18 03:30 Oxygen Delivery Method Room Air Weight: 194 lb 10.691 oz Body Mass Index (BMI) 31.1 Intake and Output for Last 24 Hours 09/07/18 09/08/18 09/09/18 23:59 23:59 23:59 Intake Total 1816.2 / 1816.2 591 / 591 116 / 116 Balance 1816.2 / 1816.2 591 / 591 116 / 116 Microbiology Past 72 Hours 09/06/18 15:10 Blood Culture - Preliminary Blood Culture (Wb) - Anticubital Right No growth in 48 hours. 09/07/18 02:30 Streptococcus pneumoniae Antigen (M - Final Urine Catheter - Catheter 09/07/18 02:30 Legionella Antigen - Final Urine Catheter - Catheter Laboratory Tests Past 24 Hrs 09/08/18 09/09/18 05:34 05:50 WBC 5.8 RBC 3.60 L Hgb 11.6 L Hct 34.4 L MCV 95.6 H MCH 32.2 H MCHC 33.7 RDW 17.5 H RDW Differential 61.6 H Plt Count 35 L* MPV 11.2 Immature Gran % (Auto) 0.200 Neut % (Auto) 60.3 Lymph % (Auto) 22.4 Mccormick % (Auto) 12.8 H Eos % (Auto) 4.3 Baso % (Auto) 0.0 Absolute Neuts (auto) 3.5 Absolute Lymphs (auto) 1.29 Total Counted Not Reportable Differential Comment SCANNED Diff Path Review Reviewed May foll Call your doctor if you observe: Fever of 101 or Higher, Shortness of breath, Dizziness, Fainting spells, Swelling in the ankles, Chest pain, Increased palpitations (irregular heartbeat) Home Medications: Medications to take at Discharge Calcium Carbonate/Vitamin D3 [Oyster Shell 500-Vit D3 200 Tb] 1 each PO DAILY 10/06/17 Divalproex Sodium [Depakote] 1,000 mg PO QHS 10/06/17 Divalproex Sodium [Depakote] 500 mg PO BID 10/06/17 Levetiracetam [Keppra] 1,000 mg PO BID 10/06/17 Minocycline HCl [Minocin] 50 mg PO QHS 10/06/17 Phenytoin Sodium Extended [Dilantin] 100 mg PO QODAY 10/06/17 Polyethylene Glycol 3350 [Miralax] 17 gm PO DAILY 10/06/17 Sennosides [Senna Lax] 8.6 mg PO DAILY 10/06/17 Cetirizine HCl 10 mg PO DAILY 09/06/18 Divalproex Sodium [Depakote] 250 mg PO TID 09/06/18 Famotidine 20 mg PO BID 09/06/18 Furosemide 40 mg PO DAILY 09/06/18 Guaifenesin [Mucinex] 600 mg PO BID 09/06/18 Ketoconazole 1 applic TP BID 09/06/18 Levothyroxine [Synthroid] 112 mcg PO DAILY 09/06/18 Meloxicam 7.5 mg PO DAILY 09/06/18 Nystatin 1 applic TP BID 09/06/18 Phenytoin [Dilantin] 50 mg PO QODAY 09/06/18 Potassium Chloride 20 meq PO DAILY 09/06/18 Triamcinolone 0.1% Ointment [Kenalog] 1 applic TP BID 09/06/18 Zinc Oxide [Desitin] 113 gm TP BID 09/06/18 Primary Care Physician: Andrea Zimmerman Chi, MD [Primary Care Provider] - Please follow up with your Primary Care Physician in: 3-5 days Please Follow Up With: Andrea Zimmerman Chi, MD Disposition: Home Minutes spent on discharge:: 35 Patient Condition:: Stable Medical Necessity - Tobacco Use Smoking Status: Never smoker Tobacco Use: Non-smoker Meaningful Use Info Meaningful Use Diagnoses (Choose all that apply): None applicable Code Visit Inpatient E&M: 61324 Disch Hosp Procedures: 71921 Advncd Care Plan 30 Min
--- NOTE | 2018-09-09 14:04 | CASEMGMT ---
Patient is [facility]. ELHAM called [facility] at the [facility] and let her know this information. They will be in to the hospital in about an hour to pick him up. Discharge summary [facility] faxed to the [facility] per their request. Plan: d/c back to the [facility]. Afsaneh FOX MSW
[2018-09-12 09:11] LABS: Pathologist Review Reviewed
== END 2018-09-09 11:38 | disposition home or self-care (01) | DRG 205 ==
LOC: ED 14:51 → PCU 15:55
PROVIDERS: Admitting Provider Internal Medicine; Emergency Provider Emergency Medicine; Family Provider Family Medicine Geriatric Medicine; PCP Family Medicine Geriatric Medicine; Referring Provider Internal Medicine; Visit Provider Family Medicine
DX: T17.900A Unspecified foreign body in respiratory tract, part unspecified causing asphyxiation, initial encounter (principal); J96.01 Acute respiratory failure with hypoxia; G40.909 Epilepsy, unspecified, not intractable, without status epilepticus; F79 Unspecified intellectual disabilities; D69.6 Thrombocytopenia, unspecified; I50.9 Heart failure, unspecified; Z79.899 Other long term (current) drug therapy
CPT/HCPCS: 31720; 36415; 71045; 80048; 80053; 80164; 80185; 82962; 83880; 84100; 84484; 85025; 87040; 87449; 92526; 92610; 93005; 94640; 99285; J7040; A4216; J1940